=== PATIENT | male | born 1965 | race Caucasian/White ===

== ENCOUNTER 2018-11-17 15:27 | Inpatient (IN) | payer MEDICARE ==
[~2018-11-17 15:27] MED LIST: Iopamidol 370 76% 100 ML VIAL ONE
[2018-11-17] MEDS ORDERED: Acetaminophen 500 MG TAB ONE (16:02)
[2018-11-17] MEDS ORDERED: Ondansetron PF 4 MG/2 ML Vial ONE (16:02)
[2018-11-17] MEDS ORDERED: Ketorolac Tromethamine 30 MG/ML VIAL ONE (16:03)
--- NOTE | 2018-11-17 16:09 | RAD ---
Exam: Chest one view HISTORY:Short of breath Comparison: 12/14/2016 FINDINGS: Lungs: No masses or consolidation. Cardiac silhouette:Accentuated by portable technique Pulmonary vessels: Normal Pleural Spaces: Clear Pneumothorax: None Osseous abnormalities: None of acuity. IMPRESSION: Prominent cardiac silhouette, accentuated by portable technique. Consider follow-up with dedicated 2 view chest.
[2018-11-17] MEDS ORDERED: Furosemide 20 MG/2 ML VIAL ONE (16:30)
[2018-11-17 16:40] LABS: #Lymphocytes 0.9 thou/uL (1.20-3.40); #Monocytes 0.5 thou/uL (0.11-0.59); #Neutrophils 8.1 thou/uL (1.40-6.50); %Basophils 0.5 % (0.0-1.0); %Eosinophils 0.2 % (0.0-10.0); %Lymphocytes 9.4 % (21.0-51.0); %Monocytes 5.3 % (0.0-10.0); %Neutrophils 84.6 % (42.0-75.0); Hemoglobin 16.8 g/dL (14.0-18.0); Mean Corpuscular HGB CONC 30.5 g/dL (32.0-36.0); Mean Corpuscular Hemoglobin 28.6 pg (27.0-31.0); Mean Corpuscular Volume 93.7 fL (78.0-98.0); Mean Platelet Volume 8.3 fL (7.4-10.4); Platelet Count 133 thou/uL (130-400); RBC Distribution Width 15.7 % (11.5-14.5); Red Blood Cell (RBC) Count 5.87 mill/uL (4.70-6.10); White Blood Cell (WBC) Count 9.6 thou/uL (4.8-10.8)
[2018-11-17 16:54] LABS: AST (SGOT) 146 U/L (5-34); Albumin 4.2 g/dL (3.5-5.0); Alkaline Phosphatase 75 U/L (40-150); Anion Gap 25 mmol/L (10-20); BUN (Urea Nitrogen) 28 mg/dL (8.4-25.7); Bilirubin, Total 6.2 mg/dL (0.2-1.2); Calc. Creatinine Clearance 0 mL/min (70-130); Calcium 10.4 mg/dL (7.8-10.44); Carbon Dioxide 12 mmol/L (22-29); Chloride 106 mmol/L (98-107); Estimated GFR-MDRD 50; Potassium 4.4 mmol/L (3.5-5.1); Sodium 139 mmol/L (136-145)
[2018-11-17 17:30] LABS: ALT (SGPT) 75 U/L (8-55)
[2018-11-17] MEDS ORDERED: Nitroglycerin 2% Ointment 1 INCH/1 GM Packet ONE (17:32)
[2018-11-17] MEDS ORDERED: Nitroglycerin 0.4 MG TAB (25 Tab Bottle) ONE (17:32)
[2018-11-17 17:44] LABS: Globulin 3.4 g/dL (2.4-3.5); Glucose 53 mg/dL (70-105); Protein, Total 7.6 g/dL (6.0-8.3)
[2018-11-17] MEDS ORDERED: Ciprofloxacin Lactate/D5W 400 mg/200 ml Premix ONE (17:54)
[2018-11-17 18:16] LABS: CKMB 36.4 ng/mL (0-6.6)
--- NOTE | 2018-11-17 18:38 | CT ---
CT OF THE ABDOMEN AND PELVIS WITH IV CONTRAST 11/17/18 INDICATION: 53-year-old male with generalized weakness and bodyaches with vomiting. The patient is having nausea, lightheadedness, abdominal pain and constipation for the past two days. The patient reports shortnes s of breath. COMPARISON: Prior exam dated 05/04/11. FINDINGS: The lung bases are clear. The heart size is moderately prominent. There is layering material within the gallbladder suspicious for sludge. No focal hepatic lesion is evident. The pancreas and adrenal glands are within normal limits. The spleen is normal appearing. Th e kidneys are normal appearing. There are moderate calcifications involving the abdominal and pelvic vasculature. There is mild ascit es. There is moderate anasarca. The bladder, rectum, and perirectal soft tissues are unremarkable. There is scattered diverticula pre sent involving the colon without evidence of active diverticulitis. There is some suggested wall thi ckening involving portions of the ascending colon and cecum which are nonspecific. The appendix is n ot definitely seen; however, there is reports that the patient has undergone prior appendectomy. No acute osseous abnormality is evident. There is scattered degenerative and ossific change. IMPRESSION: 1. Interval development of mild ascites and diffuse anasarca. Findings may be related to CHF or volume overload. Findings also can be related to third spacing of unknown etiology. 2. Suggested wall thickening involving portions of the cecum and ascending colon. Some of this m ay be related to underdistention; however, a colitis of infectious or inflammatory etiology cannot be entirely excluded. 3. The extent of the haziness seen within the retroperitoneal and mesenteric soft tissues is fel t to likely be related to the anasarca; however, entity such as pancreatitis cannot be entirely exclu ded. 4. Moderate cardiomegaly. POS: BH
[2018-11-17] MEDS ORDERED: metroNIDAZOLE 500 MG/100 ML BAG ONE (18:56)
[2018-11-17 18:59] LABS: Bilirubin Negative (Negative); Blood, Urine Negative (Negative); Clarity Clear (Clear); Glucose, Urine (Dipstick) Negative (Negative); Leukocyte Negative (Negative); Nitrite Negative (Negative); Protein, Urine (Dipstick) Negative (Neg-Trace); Specific Gravity, Urine 1.015 (1.005-1.030)
[2018-11-17 19:56] LABS: Troponin I 0.033 ng/mL (< 0.028)
[2018-11-17] MEDS ORDERED: Acetaminophen 325 MG TAB PO PRN (22:20)
[2018-11-17] MEDS ORDERED: Ondansetron PF 4 MG/2 ML Vial IVP PRN (22:20)
[2018-11-17] MEDS ORDERED: Ondansetron ODT 4 MG TAB PO PRN (22:20)
[2018-11-17 22:50] LABS: Lactic Acid 5.5 mmol/L (0.5-2.2)
[2018-11-17 22:53] LABS: Troponin I 0.047 ng/mL (< 0.028)
[2018-11-17] MEDS ORDERED: Gabapentin 100 MG CAP PO SCH (23:30)
[2018-11-17] MEDS: HYDROcodone/Acetaminophen 5/325 mg Tablet PO PRN (23:39)
[2018-11-17 23:52] LABS: Magnesium 1.4 mg/dL (1.6-2.6); Potassium 4.2 mmol/L (3.5-5.1)
[2018-11-18 00:03] LABS: Lactic Acid 5.3 mmol/L (0.5-2.2)
[2018-11-18 05:37] LABS: #Basophils 0.1 thou/uL (0.0-0.2); #Eosinphils 0.1 thou/uL (0.0-0.7); #Lymphocytes 1.8 thou/uL (1.20-3.40); #Monocytes 1.1 thou/uL (0.11-0.59); #Neutrophils 7.2 thou/uL (1.40-6.50); %Basophils 0.9 % (0.0-1.0); %Eosinophils 0.7 % (0.0-10.0); %Lymphocytes 17.5 % (21.0-51.0); %Monocytes 10.6 % (0.0-10.0); %Neutrophils 70.3 % (42.0-75.0); Hemoglobin 16.2 g/dL (14.0-18.0); Mean Corpuscular HGB CONC 31.8 g/dL (32.0-36.0); Mean Corpuscular Hemoglobin 30.3 pg (27.0-31.0); Mean Corpuscular Volume 95.2 fL (78.0-98.0); Mean Platelet Volume 9.7 fL (7.4-10.4); Platelet Count 127 thou/uL (130-400); RBC Distribution Width 15.6 % (11.5-14.5); Red Blood Cell (RBC) Count 5.36 mill/uL (4.70-6.10); White Blood Cell (WBC) Count 10.3 thou/uL (4.8-10.8)
[2018-11-18 05:52] LABS: Anion Gap 17 mmol/L (10-20); BUN (Urea Nitrogen) 37 mg/dL (8.4-25.7); Calc. Creatinine Clearance 69 mL/min (70-130); Calcium 9.2 mg/dL (7.8-10.44); Carbon Dioxide 16 mmol/L (22-29); Chloride 106 mmol/L (98-107); Estimated GFR-MDRD 48; Glucose 160 mg/dL (70-105); Potassium 4.2 mmol/L (3.5-5.1); Sodium 135 mmol/L (136-145)
[2018-11-18] MEDS ORDERED: Magnesium Sulfate 2 GM in Sodium Chloride 0.9% 100 ML IVPB SCH (07:00)
[2018-11-18] MEDS ORDERED: Magnesium 2 GM/50 ML 2 GM in Premix Bag 1 BAG IVPB SCH ×2 (07:15→09:45)
--- NOTE | 2018-11-18 08:23 | HP ---
PRIMARY CARE DOCTOR: None reported. CODE STATUS: Full code. TIME OF EVALUATION: 10:00 p.m. CHIEF COMPLAINT: Generalized weakness. HISTORY OF PRESENT ILLNESS: A 53-year-old male patient with past medical history of hepatitis C, kidney failure, GERD, diverticulosis, and congestive heart failure, came to the hospital after having severe and gradually worsening generalized weakness with no clear triggers. No alleviating factors. The symptoms started since yesterday. The patient also has associated nausea and vomiting, for the past 2 days, feeling lightheaded with abdominal discomfort. As noted, the patient has bilateral lower extremity polyneuropathy, and also with chronic trophic changes and healing ulcer in the left leg that has been followed by Wound Care for the past few months. REVIEW OF SYSTEMS: CONSTITUTIONAL: No fever or chills. The patient reported generalized weakness. RESPIRATORY: No cough or sputum production. He reported no shortness of breath. CARDIOVASCULAR: No chest pain or palpitations. GASTROINTESTINAL: The patient had nausea and vomiting. Question of abdominal pain and diarrhea. 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 The patient was feeling lightheaded. GENITOURINARY: No burning on urination. EXTREMITIES: No leg swelling. All other systems were reviewed and negative except for the findings mentioned above. PAST MEDICAL HISTORY: As mentioned in the HPI. PAST SURGICAL HISTORY: Orthopedic surgery, right foot surgery, tonsillectomy, appendectomy, cardiac cath in 2013. FAMILY HISTORY:Reviewed and non contributory to current presentation. PSYCHIATRIC HISTORY: The patient has history of anxiety, depression, suicidal attempt, and overdose with antifreeze. SOCIAL HISTORY: The patient uses marijuana, methamphetamines, alcohol, former use of benzodiazepine, and cocaine. KNOWN ALLERGIES: No known drug allergies. REPORTED MEDICATIONS: 1. Lasix. 2. Lisinopril. 3. Gabapentin. PHYSICAL EXAMINATION: VITAL SIGNS: On presentation, blood pressure 148/101 with heart rate 110, respiratory rate was 20, temperature 97.6, pain was 10/10, and oxygen saturation is 97% on room air. GENERAL APPEARANCE: The patient is alert, oriented, not in acute distress. HEENT: Eyes, normal conjunctivae. Moist oral mucosa. Anicteric. NECK: No JVD. RESPIRATORY: Bilateral air entry. No rales. No wheezing. Symmetric expansion. CARDIOVASCULAR: Normal rate. Regular rhythm. No murmurs. No rub. The patient has bilateral leg edema. ABDOMEN: Soft. Normal bowel sounds. MUSCULOSKELETAL: Baseline range of motion. No sternal tenderness. SKIN: Warm, intact. No pallor. No rash. No redness except for bilateral lower extremities, that are red with significant trophic changes. There is a healing ulcer on the left leg of about 1 x 1 inches, very poor hygiene. Peripheral pulses are present. Capillary refill seems to be intact. NEURO: No evidence of any new focal weakness. Baseline speech. Cranial nerves seem to be intact. PSYCH: The patient is in good mood. No anxiety. Optimal judgment. LABORATORY DATA: EKG was reviewed. The patient has sinus tachycardia at the rate of 109, QT corrected 511. No other significant abnormalities. CT abdomen and pelvis ; the patient has mild ascites with anasarca with thickening of the cecum and ascending colon suspicious for colitis. Labs are reviewed. The patient has white count of 9.6, hemoglobin 16.8, MCV 93.7 ASSESSMENT AND PLAN: 1. He has possible colitis as seen on the CT. The patient has been started on antibiotics. We will continue for now, follow stool cultures and adjust treatment accordingly. 2. He has underlying congestive heart failure, continue diuresis, reconcile home medications. 3. Chronic nonhealing wound on the left neck, continue wound care as inpatient. 4. The patient has uncontrolled hypertension with systolic blood pressure 146. We will not treat aggressively as the patient presented with some diarrhea and colitis, we will monitor. We will adjust treatment as needed. 5. Lactic acidosis on presentation, trending down from 7.0 to 5.3 likely secondary to the congestive heart failure or acute colitis, treatment as above. 6. Mildly elevated troponin likely secondary to underlying congestive heart failure, initial troponin 0.033. Seconds one 0.047, we will trend and monitor, Cardiology has been consulted. We will follow recommendations. 7. Acute kidney injury. The patient has an increase in creatinine from 1.0-1.4, unclear etiology, could be cardiorenal. The patient has elevated BNP. Nephrology has been consulted. We will follow recommendations. Job ID: [id number] [facility]
[2018-11-18] MEDS ORDERED: Lisinopril 20 MG TAB PO SCH (09:00)
[2018-11-18] MEDS ORDERED: Enoxaparin Sodium 40 MG/0.4 ML SYRINGE SC SCH (09:00)
[2018-11-18] MEDS ORDERED: Furosemide 40 MG/4 ML VIAL SLOW IVP SCH (09:00)
[2018-11-18] MEDS ORDERED: Furosemide 40 MG TAB PO SCH (09:00)
[2018-11-18] MEDS ORDERED: Sodium Bicarbonate Tab 325 MG TAB PO SCH (09:04)
[2018-11-18] MEDS ORDERED: Metolazone 2.5 MG TAB PO SCH (09:30)
[2018-11-18] MEDS: Aspirin Chewable 81 MG TAB PO SCH (09:47)
[2018-11-18] MEDS: Furosemide 40 MG/4 ML VIAL SLOW IVP SCH (09:47)
[2018-11-18] MEDS: Sodium Bicarbonate Tab 325 MG TAB PO SCH ×3 (09:50→20:02)
[2018-11-18] MEDS ORDERED: Enoxaparin Sodium 30 MG/0.3 ML SYRINGE SC SCH (11:15)
[2018-11-18 12:04] VITALS: BMI 23.8
--- NOTE | 2018-11-18 12:28 | ULT ---
Sonogram right upper quadrant HISTORY: Right quadrant pain. COMPARISON: CT abdomen from 11/17/2018. FINDINGS: Echogenic sludge and small stones are present within the dependent portion of the gallbladd er lumen. Patient was reportedly not tender over the gallbladder fossa at the time of the exam. Common duct is 0.5 cm. There is unremarkable without focal mass or intrahepatic biliary dilatation. S mall amount of free fluid within the right upper quadrant. IMPRESSION: Biliary sludge and gallstones. No evidence of acute biliary obstruction. Small amount of free fluid within the right upper quadrant.
[2018-11-18] MEDS: cefTRIAXone\\ROCEPHIN 1 GM in Sodium Chloride 0.9% 100 ML IVPB SCH (12:55)
[2018-11-18] MEDS ORDERED: hydrALAZINE 20 MG/ML VIAL SLOW IVP PRN (14:37)
[2018-11-18] MEDS ORDERED: cloNIDine 0.1 MG TAB PO PRN (14:37)
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
--- NOTE | 2018-11-18 14:43 | CON ---
DATE OF CONSULTATION: REASON FOR CONSULTATION: Elevated creatinine. HISTORY OF PRESENT ILLNESS: A very pleasant 53-year-old gentleman, presented to the hospital for generalized weakness. The patient had colitis. His baseline creatinine was 1, which increased to 1.5, so I was consulted. The patient has had no proteinuria. The patient denies no headache, numbness, tingling, or weakness. Denies any nausea, vomiting, or chest pain. PAST MEDICAL HISTORY: Significant for hepatitis C, kidney disease, diverticulitis, and congestive heart failure. PAST SURGICAL HISTORY: Significant for orthopedic surgery, right foot surgery, tonsillectomy, appendectomy, and cardiac cath in 2013. SOCIAL HISTORY: The patient he does use drugs formally. ALLERGIES: NO KNOWN DRUG ALLERGIES. MEDICATIONS: Home medications list reviewed. Hospital medications list reviewed. PHYSICAL EXAMINATION: CONSTITUTIONAL: The patient is awake and alert. VITAL SIGNS: Pulse 110, breathing 16, and blood pressure 148/60. GENERAL APPEARANCE AND MENTAL STATUS: Fair. HEAD/NECK: Normocephalic. Atraumatic. EYES: EOMI. No deformity. EARS: Clear. No ulcers. NOSE: Intact. No lesions. MOUTH: Clear. No discharge. THROAT: Clear. No exudate. LUNGS: Clear. No crackles. CARDIAC: S1, S2. No rub. ABDOMEN: Benign. Bowel sounds positive. GENITALIA/RECTUM: Henley absent. BACK/EXTREMITIES: Edema 0+. NEUROLOGICAL: Alert and motor intact. SKIN: LYMPHATICS: REVIEW OF SYSTEMS: A 15-point review of system was performed, negative except as noted above. GENERAL: HEAD: NECK: No swelling or lumps. NOSE: No epistaxis or discharge. EYES: No diplopia or pain. RESPIRATORY: CARDIOVASCULAR: GASTROINTESTINAL: /HUMAN INTELLIGENCE: MUSCULOSKELETAL: No joint pain. NEUROPSYCHIATIC SYSTEMS: No suicidal ideation. No ideation. SKIN: Denies any rash or ulcer. CONSTITUTIONAL: No fever or chills. LABORATORY DATA: Labs reviewed. ASSESSMENT AND PLAN: Acute kidney injury with chronic kidney disease most likely due to acute tubular necrosis due to decreased effective arterial blood volume. Continue hydration. Hypertension, stable. Anemia, stable. Medication based on GFR appropriate. No indication for dialysis. Job ID: [id number]
[2018-11-18] MEDS: metroNIDAZOLE 500 MG in Premix Bag 1 BAG IVPB SCH ×2 (14:48→20:42)
[2018-11-18 16:42] LABS: Hep C IgG Ab Reflex HepC Qnt (NonReactive); Hep C Index 13.25 S/CO (0-0.79)
--- NOTE | 2018-11-18 19:25 | CON ---
DATE OF CONSULTATION: 11/18/2018 REFERRING PHYSICIAN: Mili Levin MD SURGEON: Pola Lopez DO HISTORY OF PRESENT ILLNESS: The patient is a 53-year-old male, who presented to the emergency department yesterday complaining of weakness and nausea and vomiting for several days. He has a significant past medical history and reported he ran out of all of his medications and so he stopped using them. He has a history of hepatitis C, renal failure, GERD, diverticulosis, CHF, left lower extremity ulcer, polyneuropathy, history of suicidal ideations, suicide history, and depression. He does also report meth and marijuana use frequently. On his evaluation in the emergency department, he received a CT of the abdomen and pelvis, which demonstrated common bile duct size of 0.5 cm, right upper quadrant free fluid and biliary sludging gallstones with no obstruction. This prompted a surgical consultation by the patient's primary team. The patient reports to surgery that he has been having nausea and vomiting for the past two days. Emesis is clear. Last bowel movement was 2 days ago. He is still passing flatus. Minimal abdominal pain, which is not exacerbated by eating. He also has very mild right upper quadrant pain. LFTs are only slightly elevated. The patient reports that he generally does not feel well. REVIEW OF SYSTEMS: All additional review of systems negative except as indicated above. PAST MEDICAL HISTORY: Hepatitis C, renal failure, GERD, diverticulosis, CHF, left lower extremity ulcer, polyneuropathy, suicidal history, depression, polysubstance abuse, chronic traumatic wound to right lower extremity. PAST SURGICAL HISTORY: Appendectomy. SOCIAL HISTORY: The patient reports marijuana, meth, alcohol, benzo and cocaine abuse. MEDICATIONS: Lasix, lisinopril, and gabapentin. ALLERGIES: NO KNOWN DRUG ALLERGIES. PHYSICAL EXAMINATION: VITAL SIGNS: Temperature 97.4, pulse 98, respirations are 17, oxygen saturation 96% on 1 L nasal cannula, and blood pressure 138/89. GENERAL: Ill-appearing thin male, sitting up in bed with moderate distress. NEUROLOGIC: GCS is 15. Alert and oriented x3. Gross motor and sensation intact. HEENT: Pupils are equal, round, reactive to light. PULMONARY: No signs of acute respiratory distress. Equal chest rise and fall. Lung hanson clear bilaterally. HEART: Regular rate and rhythm. No murmurs, gallops, or rubs. GI: Abdomen is soft with minimal tenderness to the right upper quadrant, nondistended. EXTREMITIES: Gross motor and sensation intact. 2+ pulses in all extremities. Swelling to bilateral lower extremities, left greater than right. Chronic wound to left anterior tib-fib with dressing in place. No purulent discharge noted. LABORATORY FINDINGS: White count 10.3, hemoglobin 16.2, hematocrit 51.0, and platelets are 127. Sodium 135, potassium 4.2, chloride 106, carbon dioxide 16, BUN 37, creatinine 1.51, glucose 160, lactic acid 5.3. DIAGNOSTIC FINDINGS: CT scan of the abdomen and pelvis demonstrates a common bile duct measuring 0.5 cm. Right upper quadrant free fluid. Abdominal ultrasound demonstrates biliary sludge and gallstones. No evidence of acute biliary obstruction. Small amount of free fluid within the right upper quadrant. ASSESSMENT: Right upper quadrant abdominal pain, may be due to acute cholecystitis. PLAN: The patient will receive a HIDA scan tomorrow. We will make the patient n.p.o. for midnight and will reassess the indication for surgery after the HIDA scan is complete. No acute surgical intervention today. Pain management and other acute medical management by primary team. The patient was seen and examined by Dr. Lopez and myself this afternoon. Job ID: [id number]
--- NOTE | 2018-11-18 19:40 | CON ---
DATE OF CONSULTATION: 11/18/2018 REASON FOR CONSULTATION: Elevated troponin. HISTORY OF PRESENT ILLNESS: Mr. Carolina is an unfortunate 53-year-old gentleman with previous history of substance abuse, hepatitis C, who recently complained of generalized weakness. He was found to have elevated creatinine in addition to a nonhealing ulcer. His troponin was minimally elevated, therefore prompting consultation. No chest pain or pressure noted. During my visit, he could not be specific to his weakness and fatigue. He underwent coronary angiography by Dr. Shakeel Murrell in 2013 and had no significant coronary artery disease present. PAST MEDICAL HISTORY: As above. PAST SURGICAL HISTORY: Right foot surgery, orthopedic surgery, tonsillectomy, appendectomy. SOCIAL HISTORY: The patient previously used marijuana, methamphetamines, alcohol, and cocaine. ALLERGIES: NONE. REVIEW OF SYSTEMS: A 10-point review of systems is reviewed and as above, otherwise negative. PHYSICAL EXAMINATION: GENERAL: Patient is a pleasant male, who is in no acute distress. The patient does appear disheveled and older than stated age. VITAL SIGNS: Blood pressure 111/72, pulse 84, temperature 97.4. NEUROLOGIC: The patient is alert and oriented x3 with no focal neurologic deficits. HEENT: Sclerae without icterus. Mouth has moist mucous membranes with normal pallor. NECK: No JVD. Carotid upstroke brisk. No bruits bilaterally. LUNGS: Clear to auscultation with unlabored respirations. BACK: No scoliosis or kyphosis. CARDIAC: Regular rate and rhythm with normal S1 and S2. No S3 or S4 noted. No significant rubs, murmurs, thrills, or gallops noted throughout the precordium. PMI is not displaced. There is no parasternal heave. ABDOMEN: Soft, nontender, nondistended. No peritoneal signs present. No hepatosplenomegaly. No abnormal striae. EXTREMITIES: 2+ femoral and 2+ dorsalis pedis pulses. No cyanosis, clubbing, or edema. SKIN: No gross abnormalities. PERTINENT LABORATORY DATA: Hemoglobin 16.2, hematocrit 51. Creatinine 1.51 with a GFR 48. Lactic acid level 5.3. Magnesium level 1.4. Peak troponin 0.047. IMPRESSION: 1. Elevated troponin. 2. Weakness. 3. Chronic kidney disease. 4. Substance abuse. RECOMMENDATIONS: His most recent echo showed normal LVEF. He has a markedly elevated right ventricle in addition to severe tricuspid regurgitation. When compared to previous echo, this appeared unchanged. This was in 2017. His elevated troponin likely multifactorial and represents type 2 CA, not type 1. He did have lactic acid level, which is elevated in addition to elevated creatinine. His overall LVEF is normal. He has no current symptoms suggesting angina. I would recommend conservative therapy from CV standpoint. Otherwise, I have no further recommendations. Please re-consult if other changes occur. Job ID: [id number]
[2018-11-18] MEDS: Gabapentin 300 MG CAP PO SCH (20:02)
[2018-11-18] MEDS ORDERED: Gabapentin 100 MG CAP PO SCH (21:00)
[2018-11-19] MEDS: metroNIDAZOLE 500 MG in Premix Bag 1 BAG IVPB SCH ×3 (05:31→21:36)
[2018-11-19] MEDS: cefTRIAXone\\ROCEPHIN 1 GM in Sodium Chloride 0.9% 100 ML IVPB SCH (05:31)
[2018-11-19] MEDS: HYDROcodone/Acetaminophen 5/325 mg Tablet PO PRN ×2 (05:34→20:18)
[2018-11-19 06:37] LABS: #Basophils 0.1 thou/uL (0.0-0.2); #Eosinphils 0.2 thou/uL (0.0-0.7); #Lymphocytes 1.6 thou/uL (1.20-3.40); #Monocytes 0.7 thou/uL (0.11-0.59); #Neutrophils 5.2 thou/uL (1.40-6.50); %Basophils 1.1 % (0.0-1.0); %Eosinophils 2.3 % (0.0-10.0); %Lymphocytes 20.1 % (21.0-51.0); %Neutrophils 67.5 % (42.0-75.0); Hemoglobin 15.6 g/dL (14.0-18.0); Mean Corpuscular Hemoglobin 29.9 pg (27.0-31.0); Mean Corpuscular Volume 93.4 fL (78.0-98.0); Mean Platelet Volume 9.4 fL (7.4-10.4); Platelet Count 108 thou/uL (130-400); RBC Distribution Width 15.5 % (11.5-14.5); White Blood Cell (WBC) Count 7.7 thou/uL (4.8-10.8)
[2018-11-19 06:48] LABS: Lactic Acid 1.9 mmol/L (0.5-2.2)
[2018-11-19 06:56] LABS: ALT (SGPT) 138 U/L (8-55); AST (SGOT) 221 U/L (5-34); Albumin 3.3 g/dL (3.5-5.0); Alkaline Phosphatase 98 U/L (40-150); Anion Gap 14 mmol/L (10-20); BUN (Urea Nitrogen) 37 mg/dL (8.4-25.7); Bilirubin, Total 2.6 mg/dL (0.2-1.2); Calc. Creatinine Clearance 76 mL/min (70-130); Carbon Dioxide 25 mmol/L (22-29); Chloride 101 mmol/L (98-107); Estimated GFR-MDRD 57; Globulin 2.7 g/dL (2.4-3.5); Glucose 122 mg/dL (70-105); Sodium 137 mmol/L (136-145)
[2018-11-19 07:03] LABS: Potassium 2.8 mmol/L (3.5-5.1)
[2018-11-19] MEDS: Potassium Chloride 20 MEQ in Premix Bag 1 BAG IVPB SCH ×2 (08:33→13:34)
--- NOTE | 2018-11-19 12:02 | PRG ---
DATE OF SERVICE: 11/19/2018 SUBJECTIVE: A 53-year-old gentleman being seen for acute kidney injury. The patient denied nausea, vomiting, or chest pain. OBJECTIVE: CONSTITUTIONAL: The patient is awake and alert. VITAL SIGNS: Afebrile. Pulse 98, breathing 16, and blood pressure 129/78. GENERAL APPEARANCE AND MENTAL STATUS: Fair. HEAD/NECK: Normocephalic. Atraumatic. EYES: EOMI. No deformity. EARS: Clear. No ulcers. NOSE: Intact. No lesions. MOUTH: Clear. No discharge. THROAT: Clear. No exudate. LUNGS: Clear. No crackles. CARDIAC: S1, S2. No rub. ABDOMEN: Benign. Bowel sounds positive. GENITALIA/RECTUM: Henley absent. BACK/EXTREMITIES: Edema 0+. NEUROLOGICAL: Alert and motor intact. SKIN: LYMPHATICS: LABORATORY DATA: potassium 2.8 and creatinine 1.3. ASSESSMENT AND PLAN: chronic kidney disease stage 3 stable. Acute kidney injury was due to acute tubular necrosis. Hypokalemia, recommend 40 mEq of potassium. Recheck potassium and magnesium. Job ID: [id number]
[2018-11-19] MEDS ORDERED: Potassium Chloride 20 MEQ TAB PO SCH (13:00)
--- NOTE | 2018-11-19 13:01 | NM ---
HEPATOBILIARY SCAN: HISTORY:Right upper quadrant pain RADIOPHARMACEUTICAL: 5 mCi Technetium 99m Mebrofenin injected intravenously FINDINGS: There is normal tracer extraction by the liver with normal excretion into the biliary tracts and smal l bowel loops and normal filling of the gallbladder. The calculated gallbladder ejection fraction following an oral fatty meal measures 74%. IMPRESSION:Normal exam.
[2018-11-19] MEDS: Aspirin Chewable 81 MG TAB PO SCH (13:28)
[2018-11-19] MEDS: Enoxaparin Sodium 30 MG/0.3 ML SYRINGE SC SCH (13:28)
[2018-11-19] MEDS: Sodium Bicarbonate Tab 325 MG TAB PO SCH ×3 (13:29→20:18)
[2018-11-19] MEDS: Gabapentin 300 MG CAP PO SCH ×2 (13:29→20:18)
[2018-11-19] MEDS: Furosemide 40 MG/4 ML VIAL SLOW IVP SCH (13:35)
--- NOTE | 2018-11-19 14:35 | PDOC.PN ---
- Subjective Encounter Start Date: 11/19/18 Encounter Start Time: 14:33 Subjective: feels much better.still feels weak though. -: c/o pain in legs and leg wound weeping - Objective Resuscitation Status - Order Detail: 11/17/18 22:20 Resuscitation Status Routine Resuscitation Status: FULL: Full Resuscitation MAR Reviewed: Yes Vital Signs & Weight: Vital Signs (12 hours) Temp Pulse Resp BP BP Pulse Ox 11/19/18 12:54 96.1 F L 98 20 128/83 98 11/19/18 07:40 98.8 F 98 18 129/78 99 11/19/18 04:00 98.1 F 100 21 H 129/75 92 L Weight Admit Weight 193 lb 7 oz Weight 185 lb I&O: 11/18/18 11/19/18 11/20/18 06:59 06:59 06:59 Intake Total 500 1980 Output Total 600 3500 Balance -100 -1520 Result Diagrams: 11/19/18 06:05 11/19/18 06:05 Additional Labs: Accuchecks 11/19/18 11/18/18 11/18/18 05:29 19:55 17:44 POC Glucose 122 H 120 H 107 Microbiology 11/17/18 16:35 Nasal swab Influenza Types A,B Direct EIA - Final 11/18/18 15:32 Venous blood - Right Hand Blood Culture - Preliminary Specimen has been received and culture in progress. No Growth to date. 11/18/18 15:26 Venous blood - Left Hand Blood Culture - Preliminary Specimen has been received and culture in progress. No Growth to date. 11/17/18 18:40 Urine voided Urine Culture - Preliminary NO GROWTH AT 12 HOURS Laboratory Tests 12/14/16 11/17/18 11/17/18 16:15 16:30 16:35 Plt Count 133 Creatinine Lactic Acid 7.0 H* Magnesium ALT 66 H Total Bilirubin AST 101 H B-Natriuretic Peptide Hepatitis C Antibody 11/17/18 11/17/18 11/17/18 16:35 16:35 22:17 Plt Count Creatinine 1.47 H Lactic Acid 5.5 H* Magnesium ALT 75 H Total Bilirubin 6.2 H AST 146 H B-Natriuretic Peptide 1112.2 H Hepatitis C Antibody 11/17/18 11/18/18 11/18/18 23:30 05:16 05:16 Plt Count 127 L Creatinine 1.51 H Lactic Acid 5.3 H* Magnesium ALT Total Bilirubin AST B-Natriuretic Peptide Hepatitis C Antibody 11/18/18 11/19/18 11/19/18 15:32 06:05 06:05 Plt Count Creatinine 1.30 Lactic Acid Magnesium ALT 138 H Total Bilirubin 2.6 H AST 221 H B-Natriuretic Peptide 1227.4 H Hepatitis C Antibody Reflex HepC Qnt H 11/19/18 11/19/18 11/19/18 06:05 06:05 06:05 Plt Count 108 L Creatinine Lactic Acid 1.9 Magnesium 1.6 ALT Total Bilirubin AST B-Natriuretic Peptide Hepatitis C Antibody Phys Exam - Physical Examination Constitutional: NAD HEENT: PERRLA, moist MMs, sclera anicteric, oral pharynx no lesions Neck: no nodes, no JVD, supple, full ROM Respiratory: no wheezing, no rales, no rhonchi, clear to auscultation bilateral Cardiovascular: RRR, no significant murmur, no rub Gastrointestinal: soft, non-tender, no distention, positive bowel sounds Musculoskeletal: no edema, pulses present Neurological: non-focal, normal sensation, moves all 4 limbs Psychiatric: normal affect, A&O x 3 Skin: no rash Dx/Plan (1) Acute right-sided CHF (congestive heart failure) Code(s): I50.9 - HEART FAILURE, UNSPECIFIED Status: Acute Comment: H/O same .Pulmonary HTN per ECHO 2016.cont lasix.monitor I/Os. (2) LAURIE (acute kidney injury) Code(s): N17.9 - ACUTE KIDNEY FAILURE, UNSPECIFIED Status: Acute Comment: improving. (3) Hypokalemia Code(s): E87.6 - HYPOKALEMIA Status: Acute Comment: replace and recheck (4) Lactic acid acidosis Code(s): E87.2 - ACIDOSIS Status: Acute Comment: Multifactorial.Due to LAURIE, dehydration due to Poor PO intake.improving. monitor. empiric ABX. Follow Stool studies/Cx.Add CDiff testing improving.monitor (5) Metabolic acidosis Code(s): E87.2 - ACIDOSIS Status: Acute Comment: due to high lactic acid and LAURIE (6) Hyperbilirubinemia Code(s): E80.6 - OTHER DISORDERS OF BILIRUBIN METABOLISM Status: Acute Comment: no Obstruction or cholecystitis on RUQ -US.GS consulted. HIDA done . results pending.Empiric ABx (7) Gallstone Code(s): K80.20 - CALCULUS OF GALLBLADDER W/O CHOLECYSTITIS W/O OBSTRUCTION Status: Chronic Comment: HIDA pending (8) Pulmonary hypertension Code(s): I27.2 - OTHER SECONDARY PULMONARY HYPERTENSION * DO NOT USE * Status : Chronic Comment: Repeat ECHO this admission jordana eas before w severe TR and Pulm HTN (9) Cor pulmonale Code(s): I27.81 - COR PULMONALE (CHRONIC) Status: Chronic (10) Hypertension Code(s): I10 - ESSENTIAL (PRIMARY) HYPERTENSION Status: Chronic (11) Hep C w/o coma, chronic Code(s): B18.2 - CHRONIC VIRAL HEPATITIS C Status: Chronic Comment: no Rx so far. Unknown status. Will check Ab and PCR for Ag. [place] Chronic. (12) Peripheral neuropathy Code(s): G62.9 - POLYNEUROPATHY, UNSPECIFIED Status: Chronic Comment: start gabapentin. (13) Thrombocytopenia Code(s): D69.6 - THROMBOCYTOPENIA, UNSPECIFIED Status: Chronic Comment: likely due to Hep C. no overt or occult bleed. Monitor.Cont Lovenox at lower dose for DVT prophylaxis for now (14) Non compliance w medication regimen Code(s): Z91.14 - PATIENT'S OTHER NONCOMPLIANCE WITH MEDICATION REGIMEN Status : Chronic - Plan continue antibiotics, PT/OT, respiratory therapy, incentive spirometry, out of bed/ambulate, DVT proph w/SCDs add doxycycline for possible leg wound infection. may need arterial doppler -: cont wound care. -: Clinically better. -: cont Gabapentin -: add CCB for Pulm HTN if BP permits * . Review of Systems - Review of Systems Constitutional: weakness, malaise Respiratory: negative: Cough, Dry, Shortness of Breath, Hemoptysis, SOB with Excertion, Pleuritic Pain, Sputum, Wheezing Cardiovascular: negative: chest pain, palpitations, orthopnea, paroxysmal nocturnal dyspnea, edema, light headedness, other Gastrointestinal: negative: Nausea, Vomiting, Abdominal Pain, Diarrhea, Constipation, Melena, Hematochezia, Other Genitourinary: negative: Dysuria, Frequency, Incontinence, Hematuria, Retention , Other Musculoskeletal: negative: Neck Pain, Shoulder Pain, Arm Pain, Back Pain, Hand Pain, Leg Pain, Foot Pain, Other Neurological: negative: Weakness, Numbness, Incoordination, Change in Speech, Confusion, Seizures, Other - Medications/Allergies Allergies/Adverse Reactions: Allergies Allergy/AdvReac Type Severity Reaction Status Date / Time No Known Drug Allergies Allergy Verified 02/22/14 09:34 Medications: Current Medications Acetaminophen (Tylenol) 650 mg PO Q4H PRN PRN Reason: Headache/Fever/Mild Pain (1-3) Hydrocodone Bitart/Acetaminophen ([place] 5/325) 1 tab PO Q4H PRN PRN Reason: Moderate Pain (4-6) Last Admin: 11/19/18 05:34 Dose: 1 tab Albuterol/Ipratropium (Duoneb) 3 ml NEB Q6H PRN PRN Reason: SOB Aspirin (Aspirin Chewable) 81 mg PO QAM-[facility] Last Admin: 11/19/18 13:28 Dose: 81 mg Clonidine (Catapres) 0.1 mg PO Q4H PRN PRN Reason: SBP>160 Enoxaparin Sodium (Lovenox) 30 mg SC 0900 [facility] Last Admin: 11/19/18 13:28 Dose: 30 mg Furosemide (Lasix) 40 mg PO DAILY-AC [facility] Gabapentin (Neurontin) 300 mg PO BID [facility] Last Admin: 11/19/18 13:29 Dose: 300 mg Hydralazine HCl (Apresoline) 10 mg SLOW IVP Q4H PRN PRN Reason: SBP>170 Ceftriaxone Sodium 1 gm/ (Sodium Chloride) 100 mls @ 200 mls/hr IVPB Q24HR [facility] Last Admin: 11/19/18 05:31 Dose: 100 mls Metronidazole 500 mg/ Device 100 mls @ 100 mls/hr IVPB Q8HR [facility] Last Admin: 11/19/18 05:31 Dose: 100 mls Ondansetron HCl (Zofran Odt) 4 mg PO Q6H PRN PRN Reason: Nausea/Vomiting Ondansetron HCl (Zofran) 4 mg IVP Q6H PRN PRN Reason: Nausea/Vomiting Potassium Chloride (K-Dur) 40 meq PO QAM-[facility] Potassium Chloride (Klor-Con) 20 meq PO 1500 [facility] Stop: 11/19/18 16:00 Sodium Bicarbonate (Bicarbonate, Sodium) 650 mg PO TID [facility] Last Admin: 11/19/18 13:29 Dose: 650 mg Sodium Chloride (Flush - Normal Saline) 10 ml IVF Q12HR [facility] Last Admin: 11/19/18 08:40 Dose: 10 ml Sodium Chloride (Flush - Normal Saline) 10 ml IVF PRN PRN PRN Reason: Saline Flush Tramadol HCl (Ultram) 50 mg PO Q4H PRN PRN Reason: Moderate pain
[2018-11-19] MEDS ORDERED: NIFEdipine XL 30 MG TAB PO SCH (14:45)
[2018-11-19 15:09] LABS: Anion Gap 14 mmol/L (10-20); BUN (Urea Nitrogen) 33 mg/dL (8.4-25.7); Calc. Creatinine Clearance 75 mL/min (70-130); Calcium 9.1 mg/dL (7.8-10.44); Carbon Dioxide 28 mmol/L (22-29); Chloride 100 mmol/L (98-107); Estimated GFR-MDRD 56; Glucose 99 mg/dL (70-105); Potassium 3.1 mmol/L (3.5-5.1); Sodium 139 mmol/L (136-145)
[2018-11-19 15:23] LABS: Potassium 3.1 mmol/L (3.5-5.1)
--- NOTE | 2018-11-19 16:28 | PRG ---
DATE OF SERVICE: 11/19/2018 SUBJECTIVE: The patient was seen this morning, sitting up in bed. Appearing better than yesterday. Reported no nausea or vomiting overnight. Just stated that his IV potassium replacement was painful in his right upper extremity. Has still not had a bowel movement. Not passing flatus, however, has minimal GI complaints. OBJECTIVE: VITAL SIGNS: Temperature 98.1, pulse 100, respirations 21, oxygen saturation 92% on room air, and blood pressure 129/76. GENERAL: A well-appearing thin male, sitting up in bed with no signs of acute distress. NEUROLOGIC: GCS is 15. Alert and oriented x3. Gross motor and sensation are intact. PULMONARY: No signs of acute respiratory distress. Equal chest rise and fall. Clear breath sounds bilaterally. HEART: Regular rate and rhythm. No murmurs, gallops, or rubs. GI: Abdomen is soft. Minimal tenderness to the right upper quadrant, but nondistended. EXTREMITIES: Gross motor and sensation intact in all extremities. 2+ pulses in all extremities. Swelling in his bilateral lower extremities, left greater than right. Chronic wound to left anterior tib-fib in place. LABORATORY FINDINGS: White count 7.7, hemoglobin 15.6, hematocrit 48.6, platelets 108. Sodium 139, potassium 3.1, chloride 101, carbon dioxide 28, BUN 33, creatinine 1.32, and glucose 99. DIAGNOSTIC FINDINGS: HIDA scan completed today, demonstrates there is normal tracer extraction by the liver with normal extraction into the biliary tract and small bowel loops and normal filling of the gallbladder. Ejection fraction following in the oral fatty meal measures 78%. Impression, reports normal exam. ASSESSMENT: Mild abdominal symptoms, rule out acute cholecystitis and cholelithiasis. PLAN: The patient received this HIDA scan today, which demonstrated the patient does not have acute cholecystitis. There is no surgical indication at this time. No additional workup indicated per surgery. Pain management and additional acute medical management by primary team. Surgery will sign off at this time. Please call with any concerns. The patient was discussed with Dr. Lopez before this dictation. Job ID: [id number] MTDD
[2018-11-20] MEDS: metroNIDAZOLE 500 MG in Premix Bag 1 BAG IVPB SCH (05:36)
[2018-11-20] MEDS: HYDROcodone/Acetaminophen 5/325 mg Tablet PO PRN (06:21)
[2018-11-20] MEDS: cefTRIAXone\\ROCEPHIN 1 GM in Sodium Chloride 0.9% 100 ML IVPB SCH (06:22)
[2018-11-20] MEDS ORDERED: Furosemide 40 MG TAB PO SCH (07:30)
[2018-11-20] MEDS ORDERED: NIFEdipine XL 30 MG TAB PO SCH (09:00)
[2018-11-20] MEDS: Aspirin Chewable 81 MG TAB PO SCH (09:01)
[2018-11-20] MEDS: Gabapentin 300 MG CAP PO SCH ×2 (09:01→21:20)
[2018-11-20] MEDS: Potassium Chloride 20 MEQ TAB PO SCH (09:01)
[2018-11-20] MEDS: Sodium Bicarbonate Tab 325 MG TAB PO SCH (09:01)
[2018-11-20] MEDS: Enoxaparin Sodium 30 MG/0.3 ML SYRINGE SC SCH (09:02)
[2018-11-20] MEDS ORDERED: traMADol HCl 50 MG TAB PO PRN (12:17)
[2018-11-20] MEDS ORDERED: Polyethylene Glycol 3350 17 GM Packet PO SCH (12:30)
[2018-11-20] MEDS ORDERED: Bisacodyl 10 MG SUPP PR SCH (12:30)
[2018-11-20] MEDS ORDERED: Senokot S 8.6-50 MG TAB PO SCH (12:30)
[2018-11-20] MEDS: Furosemide 40 MG TAB PO SCH (14:34)
--- NOTE | 2018-11-20 17:00 | PDOC.PN ---
- Subjective Encounter Start Date: 11/20/18 Encounter Start Time: 10:30 Patient seen and examined for CHF/LAURIE/Cellulitis. Feeling better. No new complaints. No overnight events - Objective Resuscitation Status - Order Detail: 11/17/18 22:20 Resuscitation Status Routine Resuscitation Status: FULL: Full Resuscitation MAR Reviewed: Yes Vital Signs & Weight: Vital Signs (12 hours) Pulse 11/20/18 09:57 100 Weight Admit Weight 193 lb 7 oz Weight 185 lb 9.6 oz I&O: 11/19/18 11/20/18 11/21/18 06:59 06:59 06:59 Intake Total 1979 1700 Output Total 3500 1900 Balance -1520 -200 Result Diagrams: 11/19/18 06:05 11/19/18 14:41 Additional Labs: Accuchecks 11/20/18 11/20/18 11/19/18 11:09 06:08 20:21 POC Glucose 119 H 94 131 H 11/19/18 17:01 POC Glucose 103 Radiology Reviewed by me: No (HIDA - negative) EKG Reviewed by me: Yes (Tele SR) Phys Exam - Physical Examination Constitutional: NAD Respiratory: no wheezing, no rhonchi Cardiovascular: RRR, no rub Gastrointestinal: soft, non-tender, positive bowel sounds Musculoskeletal: edema present LLE erythema improving Neurological: non-focal Dx/Plan - Plan plan discussed w/ family, DVT proph w/SCDs IMPRESSION: Gen weakness Acute on chronic Right heart failure / Pulmonary HTN LAURIE on CKD 2 due to Cardiorenal syndrome LLE Cellulitis N/V/Abd pain - improving HTN Chronic Hepatitis C Abn LFTs - due to passive hepatic congestion Type 2 IN Metabolic acidosis/Lactic acidosis due to LAURIE Hypokalemia Dental caries h/o Polysubstance abuse Thrombocytopenia Constipation Peripheral neuropathy PLAN: Change Lasix to PO Change Atbx to PO Augmentin Cont Fluid restriction CHF Education AM labs Replace Potassium Treat constipation Review of Systems - Review of Systems Respiratory: negative: Cough, Dry, Shortness of Breath, Hemoptysis, SOB with Excertion, Pleuritic Pain, Sputum, Wheezing Cardiovascular: negative: chest pain, palpitations, orthopnea, paroxysmal nocturnal dyspnea, edema, light headedness, other - Medications/Allergies Allergies/Adverse Reactions: Allergies Allergy/AdvReac Type Severity Reaction Status Date / Time No Known Drug Allergies Allergy Verified 02/22/14 09:34 Medications: Current Medications Acetaminophen (Tylenol) 650 mg PO Q4H PRN PRN Reason: Headache/Fever/Mild Pain (1-3) Albuterol/Ipratropium (Duoneb) 3 ml NEB Q6H PRN PRN Reason: SOB Amoxicillin/Clavulanate Potassium (Augmentin) 875 mg PO Q12HR [facility] Aspirin (Aspirin Chewable) 81 mg PO QAM-[facility] Last Admin: 11/20/18 09:01 Dose: 81 mg Clonidine (Catapres) 0.1 mg PO Q4H PRN PRN Reason: SBP>160 Furosemide (Lasix) 40 mg PO 0900,1400 [facility] Last Admin: 11/20/18 14:34 Dose: 40 mg Gabapentin (Neurontin) 300 mg PO BID [facility] Last Admin: 11/20/18 09:01 Dose: 300 mg Hydralazine HCl (Apresoline) 10 mg SLOW IVP Q4H PRN PRN Reason: SBP>170 Lisinopril (Zestril) 2.5 mg PO DAILY [facility] Ondansetron HCl (Zofran Odt) 4 mg PO Q6H PRN PRN Reason: Nausea/Vomiting Ondansetron HCl (Zofran) 4 mg IVP Q6H PRN PRN Reason: Nausea/Vomiting Polyethylene Glycol (Miralax) 17 gm PO DAILY [facility] Potassium Chloride (K-Dur) 40 meq PO QA-[facility] Last Admin: 11/20/18 09:01 Dose: 40 meq Senna/Docusate Sodium (Senokot S) 2 tab PO BID [facility] Sodium Chloride (Flush - Normal Saline) 10 ml IVF Q12HR [facility] Last Admin: 11/20/18 09:58 Dose: 10 ml Sodium Chloride (Flush - Normal Saline) 10 ml IVF PRN PRN PRN Reason: Saline Flush Tramadol HCl (Ultram) 50 mg PO Q4H PRN PRN Reason: Moderate pain Tramadol HCl (Ultram) 50 mg PO Q4H PRN PRN Reason: Moderate Pain (4-6)
[2018-11-20 20:07] LABS: HCV log10 5.918 (.); Hep C PCR-Quant 827000 IU/mL (.)
[2018-11-20] MEDS: Senokot S 8.6-50 MG TAB PO SCH (21:20)
[2018-11-20] MEDS: Amoxicillin/Potassium Clav 875 MG TAB PO SCH (21:20)
[2018-11-20] MEDS: traMADol HCl 50 MG TAB PO PRN (21:35)
[2018-11-21] MEDS: traMADol HCl 50 MG TAB PO PRN (02:53)
[2018-11-21 04:57] LABS: #Basophils 0.1 thou/uL (0.0-0.2); #Eosinphils 0.2 thou/uL (0.0-0.7); #Lymphocytes 1.4 thou/uL (1.20-3.40); #Monocytes 0.7 thou/uL (0.11-0.59); #Neutrophils 3.9 thou/uL (1.40-6.50); %Basophils 1.6 % (0.0-1.0); %Eosinophils 3.8 % (0.0-10.0); %Monocytes 10.7 % (0.0-10.0); %Neutrophils 61.9 % (42.0-75.0); Hemoglobin 15.8 g/dL (14.0-18.0); Mean Corpuscular HGB CONC 31.9 g/dL (32.0-36.0); Mean Corpuscular Hemoglobin 29.5 pg (27.0-31.0); Mean Corpuscular Volume 92.7 fL (78.0-98.0); Mean Platelet Volume 9.6 fL (7.4-10.4); Platelet Count 104 thou/uL (130-400); RBC Distribution Width 15.5 % (11.5-14.5); Red Blood Cell (RBC) Count 5.36 mill/uL (4.70-6.10); White Blood Cell (WBC) Count 6.3 thou/uL (4.8-10.8)
[2018-11-21 05:12] LABS: ALT (SGPT) 77 U/L (8-55); AST (SGOT) 101 U/L (5-34); Albumin 3.3 g/dL (3.5-5.0); Alkaline Phosphatase 93 U/L (40-150); Anion Gap 13 mmol/L (10-20); BUN (Urea Nitrogen) 22 mg/dL (8.4-25.7); Bilirubin, Total 2.2 mg/dL (0.2-1.2); Calc. Creatinine Clearance 94 mL/min (70-130); Calcium 9.1 mg/dL (7.8-10.44); Carbon Dioxide 30 mmol/L (22-29); Chloride 98 mmol/L (98-107); Estimated GFR-MDRD 73; Globulin 2.9 g/dL (2.4-3.5); Glucose 91 mg/dL (70-105); Magnesium 1.6 mg/dL (1.6-2.6); Potassium 3.5 mmol/L (3.5-5.1); Protein, Total 6.2 g/dL (6.0-8.3); Sodium 137 mmol/L (136-145)
[2018-11-21] MEDS ORDERED: Lisinopril 2.5 MG TAB PO SCH ×2 (09:00→21:00)
[2018-11-21] MEDS ORDERED: Polyethylene Glycol 3350 17 GM Packet PO SCH (09:00)
[2018-11-21] MEDS: Aspirin Chewable 81 MG TAB PO SCH (09:45)
[2018-11-21] MEDS: Amoxicillin/Potassium Clav 875 MG TAB PO SCH ×2 (09:46→20:28)
[2018-11-21] MEDS: Gabapentin 300 MG CAP PO SCH ×2 (09:46→20:28)
[2018-11-21] MEDS: Potassium Chloride 20 MEQ TAB PO SCH (09:46)
[2018-11-21] MEDS: Furosemide 40 MG TAB PO SCH (09:46)
[2018-11-21] MEDS: Senokot S 8.6-50 MG TAB PO SCH ×2 (09:47→20:28)
[2018-11-21] MEDS ORDERED: Furosemide 20 MG TAB PO SCH (14:00)
[2018-11-21] MEDS ORDERED: Furosemide 40 MG/4 ML VIAL SLOW IVP SCH (14:00)
[2018-11-21] MEDS: Sodium Chloride 0.65% Nasal 44 ML BOT EA NARE SCH ×2 (15:01→20:27)
[2018-11-21] MEDS: Chlorhexidine Gluconate 15 ML UDCUP SSP SCH ×2 (15:02→20:27)
--- NOTE | 2018-11-21 16:16 | DIS ---
DATE OF ADMISSION: 11/17/2018 DATE OF DISCHARGE: 11/21/2018 DISCHARGE DISPOSITION: Home. FOLLOWUP: 1. Follow up with primary care physician at [facility] in 1 week. 2. Follow up with Gastroenterology as outpatient for hepatitis C. 3. Follow up with Pulmonary as outpatient for pulmonary hypertension. ALLERGIES: NO KNOWN DRUG ALLERGIES. DISCHARGE MEDICATIONS: 1. Aspirin 81 mg daily. 2. Augmentin 875 mg b.i.d. for 1 week. 3. Doxycycline 100 mg b.i.d. for 1 week. 4. Albuterol inhaler as needed. 5. Lasix 20 mg b.i.d. 6. Neurontin 100 mg daily. 7. Lisinopril 2.5 mg b.i.d. 8. MiraLAX daily. 9. Senokot-S two tablets b.i.d. until constipation resolves. 10. Potassium chloride 10 mEq b.i.d. for next 14 days. The patient was seen and examined on the day of discharge. Denies any new complaints. No chest pain, shortness of breath, or palpitations reported. The patient was advised to follow up on the hepatitis C RNA results. Basic metabolic profile after 1 week is recommended. Primary care physician advised to follow. BRIEF HOSPITAL COURSE: The patient is a 53-year-old male with chronic hepatitis C, GERD, and congestive heart failure, presented to the hospital with generalized weakness. He has gained approximately 20 to 25 pounds recently. Please note that he was out of all of his medications. Please refer to the history and physical for further details. The patient was admitted to the hospital with a diagnosis of generalized weakness along with congestive heart failure exacerbation. He was started on Lasix with good improvement in his symptoms. His weight on the day of discharge is 176 pounds from 195 pounds on admission. He was extensively counseled on congestive heart failure. His echocardiogram showed severely enlarged right ventricle cavity with markedly enlarged right atrium size with severe tricuspid regurgitation, severely elevated pulmonary artery pressure. Ejection fraction was 55% to 60%. Please note that the patient has a history of pulmonary hypertension and is out of all of his medications including Lasix. The patient was extensively counseled to be compliant with fluid restriction. Repeat CMP after 1 week is recommended. Primary care physician advised to follow. The patient was also found to have elevated LFTs with total bilirubin of 6.[address] scan of the abdomen and pelvis showed diffuse anasarca with ascites and bowel wall thickening. He was evaluated by General Surgery for abnormal LFTs due to concern of possible acute cholecystitis. HIDA scan, however, came back negative. His LFTs improved with diuresis. His bilirubin on the day of discharge is 2.2 from 6.2 on admission. The patient has significant lactic acidosis of 7.0 on admission that improved to 1.9 with diuresis. The lactic acidosis was probably secondary to third spacing. His bicarbonate on admission was 12. The patient qualified for home oxygen, which will be arranged on the day of discharge. He has a long history of pulmonary hypertension without any followup. He was advised to follow up with web development instructor as outpatient. FINAL DIAGNOSES: 1. Generalized weakness multifactorial. 2. Afnhc-we-qldsdvw right-sided heart failure, improved. The patient lost 20 pounds weight during this admission. 3. History of pulmonary hypertension and outpatient pulmonology followup is recommended. 4. Acute kidney injury on chronic kidney disease stage 2 secondary to cardiorenal syndrome. 5. Left lower extremity cellulitis with ulceration. He will continue wound care along with antibiotics. 6. Nausea, vomiting, abdominal pain, improved. 7. Hypertension. 8. Chronic hepatitis C. Hepatitis C RNA is pending at this time. An outpatient GI followup is recommended. 9. Abnormal LFTs secondary to passive hepatic congestion, improving. 10. Follow up labs as outpatient is recommended. 11. Type 2 myocardial infarction. 12. Metabolic acidosis/lactic acidosis due to acute kidney injury and third spacing. 13. Acute kidney injury, improved. 14. Hypokalemia. 15. Poor dental hygiene/dental caries and outpatient dental followup is recommended. 16. History of polysubstance abuse. 17. Thrombocytopenia. 18. Constipation. 19. Peripheral neuropathy. 20. Hypoglycemia on admission. 21. Chronic kidney disease stage 2. PLAN: Plan of care was discussed with the patient in detail. He stated understanding. Total time coordinating the discharge of this patient was 39 minutes. Job ID: [id number]
[2018-11-21 20:30] VITALS: BP 124/81
[2018-11-21 20:36] VITALS: TEMP 98.1
[2018-11-21] MEDS ORDERED: Enoxaparin Sodium 30 MG/0.3 ML SYRINGE SC SCH (21:00)
[2018-11-21] MEDS ORDERED: Doxycycline 100 MG CAP PO SCH (21:00)
== END 2018-11-21 21:05 | disposition home or self-care (01) | DRG 280 ==
LOC: SCSER 15:27 → 2NO 20:14
PROVIDERS: ADMIT Internal Medicine; ATTEND Internal Medicine
DX: I13.0 Hypertensive heart and chronic kidney disease with heart failure and stage 1 through stage 4 chronic kidney disease, or unspecified chronic kidney disease (principal); N17.0 Acute kidney failure with tubular necrosis; I21.A1 Myocardial infarction type 2; E87.2 Acidosis; E80.6 Other disorders of bilirubin metabolism; K80.20 Calculus of gallbladder without cholecystitis without obstruction; I27.20 Pulmonary hypertension, unspecified; I27.81 Cor pulmonale (chronic); N18.2 Chronic kidney disease, stage 2 (mild); B18.2 Chronic viral hepatitis C; G62.9 Polyneuropathy, unspecified; D69.6 Thrombocytopenia, unspecified; Z91.14 Patient's other noncompliance with medication regimen; E87.6 Hypokalemia; I50.9 Heart failure, unspecified
CPT/HCPCS: 36415; 36416; 71045; 74177; 76705; 78227; 80048; 80053; 81003; 82010; 82553; 83605; 83690; 83735; 83880; 84145; 84484; 85025; 86803; 87040; 87086; 87522; 87804; 93005; 93306; 93798; 96365; 96367; 96375; A9537; J0696; J0744; J1650; J1885; J1940; J2405; J3475; J3480; J3490; Q9967

== ENCOUNTER 2019-09-10 10:45 | Observation (INO) | payer MEDICARE ==
[2019-09-10 11:36] LABS: #Basophils 0.1 thou/uL (0.0-0.2); #Eosinphils 0.3 thou/uL (0.0-0.7); #Lymphocytes 1.4 thou/uL (1.20-3.40); #Monocytes 0.5 thou/uL (0.11-0.59); %Basophils 1.1 % (0.0-1.0); %Eosinophils 4.9 % (0.0-10.0); %Lymphocytes 22.3 % (21.0-51.0); %Monocytes 8.5 % (0.0-10.0); %Neutrophils 63.2 % (42.0-75.0); Hemoglobin 15.7 g/dL (14.0-18.0); Mean Corpuscular HGB CONC 32.9 g/dL (32.0-36.0); Mean Corpuscular Hemoglobin 30.3 pg (27.0-31.0); Mean Platelet Volume 10.1 fL (7.4-10.4); Platelet Count 94 thou/uL (130-400); RBC Distribution Width 15.6 % (11.5-14.5); Red Blood Cell (RBC) Count 5.18 mill/uL (4.70-6.10); White Blood Cell (WBC) Count 6.3 thou/uL (4.8-10.8)
[2019-09-10 11:41] LABS: INR-International Normal Ratio 1.1; PTT 33.7 SEC (22.9-36.1); Prothrombin Time 13.8 SEC (12.0-14.7)
--- NOTE | 2019-09-10 11:46 | ULT ---
RIGHT UPPER QUADRANT ULTRASOUND CLINICAL HISTORY: Right upper quadrant pain. COMPARISON: November 18, 2018 FINDINGS: Liver:Normal echotexture without focal mass. Intrahepatic bile ducts: No intrahepatic or extrahepatic biliary dilation.; Common bile duct: 5 mm. Gallbladder: There is persistent gallbladder sludge and gallstones within the lumen of the gallbladde r. There is mild gallbladder wall thickening measuring 3.7 mm. No pericholecystic fluid is demonstrated. Paredes's sign:None Main portal vein:Patent with hepatopedal flow. Pancreas:Visualized pancreas appears normal. Right kidney: Right kidney measures 9.8 x 4.2 x 4.9 cm. No focal renal lesion or hydronephrosis. Additional findings: None. IMPRESSION: Stable cholelithiasis with gallbladder sludge and mild collateral wall thickening. There is no sonogr aphic evidence to suggest acute calculus cholecystitis.
[2019-09-10 12:01] LABS: ALT (SGPT) 37 U/L (8-55); AST (SGOT) 74 U/L (5-34); Albumin 3.4 g/dL (3.5-5.0); Alkaline Phosphatase 86 U/L (40-110); Anion Gap 14 mmol/L (10-20); BUN (Urea Nitrogen) 20 mg/dL (8.4-25.7); Bilirubin, Total 2.6 mg/dL (0.2-1.2); Calc. Creatinine Clearance 0 mL/min (70-130); Carbon Dioxide 23 mmol/L (22-29); Chloride 103 mmol/L (98-107); Estimated GFR-MDRD 74; Globulin 3.2 g/dL (2.4-3.5); Glucose 108 mg/dL (70-105); Lipase 25 U/L (8-78); Potassium 4.1 mmol/L (3.5-5.1); Protein, Total 6.6 g/dL (6.0-8.3); Sodium 136 mmol/L (136-145)
--- NOTE | 2019-09-10 12:07 | RAD ---
RADIOGRAPH CHEST 1 VIEW: DATE: 09-10-2019 HISTORY: 53-year-old male with chest pain. FINDINGS: There is cardiomegaly. There is no evidence of air space density, pulmonary edema, or pneumothorax. T he lateral costophrenic angles are sharp. IMPRESSION: 1) No acute pulmonary findings. 2) Mild cardiomegaly without congestive heart failure. jn POS: [facility]PC
[2019-09-10] MEDS ORDERED: Nitroglycerin 2% Ointment 1 INCH/1 GM Packet ONE (12:12)
[2019-09-10 13:12] LABS: CKMB 9.2 ng/mL (0-6.6)
--- NOTE | 2019-09-10 14:04 | PDOC.HHP ---
Hospitalist HPI - History of Present Illness Chest pain History of Present Illness: This is a 53-year-old male with history of hypertension, CHF and peripheral neuropathy who presented to the hospital with complaints of central chest tightness that started earlier today after waking up from sleep. The patient's pain did not radiate and was associated with palpitations and shortness of breath. It persisted until receiving nitroglycerin in the emergency department. The patient denies any current pain. He was recently discharged from another hospital after being treated for C. difficile colitis. The patient stated that he has at least 7 days to go on his oral vancomycin. Hospitalist ROS - Review of Systems All other systems reviewed; all pertinent +/- noted in HPI/Subj Hospitalist History - Past Medical History Cardiac: reports: CHF, HTN - Past Surgical History Past Surgical History: reports: Appendectomy, Tonsillectomy - Family History Family History: reports: no pertinent history - Social History Smoking Status: Never smoker Alcohol: reports: None Drugs: reports: none - Exam General Appearance: NAD, awake alert Eye: PERRL, anicteric sclera ENT: normocephalic atraumatic Neck: supple Heart: RRR, no murmur, no gallops, no rubs Respiratory: CTAB, no wheezes, no rales Gastrointestinal: soft, non-tender, non-distended, normal bowel sounds Neurological: cranial nerve grossly intact, no focal deficits Hospitalist Results - Labs Result Diagrams: 09/10/19 11:09 09/10/19 11:09 Lab results: WBC 6.3 thou/uL (4.8-10.8) 09/10/19 11:09 Hgb 15.7 g/dL (14.0-18.0) 09/10/19 11:09 Hct 47.7 % (42.0-52.0) 09/10/19 11:09 MCV 92.0 fL (78.0-98.0) 09/10/19 11:09 Plt Count 94 thou/uL (130-400) L 09/10/19 11:09 Neutrophils % 63.2 % (42.0-75.0) 09/10/19 11:09 Sodium 136 mmol/L (136-145) 09/10/19 11:09 Potassium 4.1 mmol/L (3.5-5.1) 09/10/19 11:09 Chloride 103 mmol/L (98-107) 09/10/19 11:09 Carbon Dioxide 23 mmol/L (22-29) 09/10/19 11:09 BUN 20 mg/dL (8.4-25.7) 09/10/19 11:09 Creatinine 1.04 mg/dL (0.7-1.3) 09/10/19 11:09 Glucose 108 mg/dL (70-105) H 09/10/19 11:09 Lactic Acid 2.0 mmol/L (0.5-2.2) 09/10/19 11:09 Calcium 9.0 mg/dL (7.8-10.44) 09/10/19 11:09 Total Bilirubin 2.6 mg/dL (0.2-1.2) H 09/10/19 11:09 AST 74 U/L (5-34) H 09/10/19 11:09 ALT 37 U/L (8-55) 09/10/19 11:09 Alkaline Phosphatase 86 U/L (40-110) 09/10/19 11:09 CK-MB (CK-2) 9.2 ng/mL (0-6.6) H* 09/10/19 11:09 Troponin I 0.038 ng/mL (< 0.028) H 09/10/19 11:09 Serum Total Protein 6.6 g/dL (6.0-8.3) 09/10/19 11:09 Albumin 3.4 g/dL (3.5-5.0) L 09/10/19 11:09 Lipase 25 U/L (8-78) 09/10/19 11:09 Hospitalist H&P A/P - Problem (1) CHF (congestive heart failure) Code(s): I50.9 - HEART FAILURE, UNSPECIFIED Status: Acute (2) Chest pain Code(s): R07.9 - CHEST PAIN, UNSPECIFIED Status: Acute (3) Elevated troponin level Code(s): R74.8 - ABNORMAL LEVELS OF OTHER SERUM ENZYMES Status: Acute (4) Hypertension Code(s): I10 - ESSENTIAL (PRIMARY) HYPERTENSION Status: Chronic (5) Peripheral neuropathy Code(s): G62.9 - POLYNEUROPATHY, UNSPECIFIED Status: Chronic (6) Pulmonary hypertension Code(s): I27.2 - OTHER SECONDARY PULMONARY HYPERTENSION * DO NOT USE * Status : Chronic - Plan Plan: Placed in telemetry. EKG showed right bundle branch block without ST-T abnormalities. Initial troponin was slightly elevated. Continue to trend troponins. Aspirin 325 was given in route. Continue aspirin 81 mg orally daily tomorrow. Start metoprolol tartrate 12.5 mg orally twice daily. Atorvastatin 40 mg orally nightly. Nitroglycerin sublingual as needed for pain. Consult cardiology. N.p.o. after midnight.
[2019-09-10] MEDS ORDERED: Nitroglycerin 0.4 MG TAB (25 Tab Bottle) SL PRN (14:10)
[2019-09-10 14:59] VITALS: BMI 20.5
[2019-09-10 15:45] LABS: Troponin I 0.044 ng/mL (< 0.028)
[2019-09-10 17:49] LABS: Amphetamine Not Detected (NotDetected); Barbiturates Screen Not Detected (NotDetected); Benzodiazepine Screen Not Detected (NotDetected); Cocaine Metabolite Screen Not Detected (NotDetected); Medtox Control Line Valid? VALID (VALID); Medtox Reader # READER 4; Methadone Not Detected (NotDetected); Methamphetamine Not Detected (NotDetected); Opiate Screen Not Detected (NotDetected); Oxycodone Screen Not Detected (NotDetected); Phencyclidine (PCP) Not Detected (NotDetected); THC/Cannabinoid Screen Not Detected (NotDetected); Tricyclic Screen Not Detected (NotDetected)
[2019-09-10 18:58] LABS: Troponin I 0.052 ng/mL (< 0.028)
[2019-09-10] MEDS: Vancomycin HCl 25 MG/ML Oral PO SCH (19:19)
--- NOTE | 2019-09-10 20:40 | CON ---
DATE OF CONSULTATION: 09/10/2019 PRIMARY ASSISTANT PLANT MANAGER: Robert Zamudio MD REASON FOR CONSULTATION: Chest pain. HISTORY OF PRESENT ILLNESS: Mr. Carolina is a 53-year-old white gentleman, who comes to the hospital for chest pain. He was at the [facility] recently, treated for C difficile colitis. He was admitted overnight and discharged home. He came in as he felt right-sided chest pain. He tells me that it is worse when he takes a deep breath or when he coughs. He had heart catheterization in this hospital in the past by Dr. Murrell in 2014, which showed no significant coronary artery disease. He has had multiple admissions for chest pain since. His troponin is always in the indeterminate range. Currently, he denies any more chest pain. He states that he is no longer having diarrhea. He is only having normal bowel movements. He states he was at [facility] for 1 whole week and he was discharged home, told he had septic shock secondary to C difficile colitis. PAST MEDICAL HISTORY: 1. Pulmonary hypertension. 2. Essential hypertension. 3. Depression. 4. Schizophrenia. 5. Bipolar disorder. 6. Polysubstance abuse. 7. Hepatitis C. 8. Recent C difficile colitis. SURGICAL HISTORY: 1. Right foot surgery. 2. Tonsillectomy. 3. Appendectomy. FAMILY HISTORY: Positive for early coronary artery disease. SOCIAL HISTORY: History of methamphetamine, marijuana, and cocaine use in the past. Continues to smoke. REVIEW OF SYSTEMS: A 12-point review of systems was done and was all negative unless stated in the history of present illness. OUTPATIENT MEDICATIONS: 1. Gabapentin. 2. Aspirin 81. 3. Atorvastatin 40 a day. 4. Tylenol p.r.n. 5. Tamsulosin. 6. Lisinopril. 7. Furosemide 10 mg b.i.d. 8. P.o. vancomycin added recently. ALLERGIES: NO KNOWN DRUG ALLERGIES. PHYSICAL EXAMINATION: VITAL SIGNS: Temperature 96.3, pulse 103, respiratory rate 19, satting 95% on 2 L nasal cannula, blood pressure 136/92. GENERAL: Awake, alert, and oriented x3, in no distress. HEENT: Normocephalic and atraumatic. NECK: Supple. LUNGS: Clear. CARDIOVASCULAR: S1 and S2. No S3 or S4. There is a grade 2/6 systolic murmur at the right upper sternal border. ABDOMEN: Soft. Positive bowel sounds. EXTREMITIES: No edema. SKIN: Warm and dry. LABORATORY DATA: Laboratory work is reviewed. Sodium of 136, potassium of 4.1. The rest of the metabolic was unremarkable except for a glucose of 108, total bilirubin of 2.6, AST of 74, and albumin of 3.4. CK-MB was 9.2. Troponin I was 0.03, 0.04, and 0.05. Toxicology was negative. Coags were normal. Hematology was normal with a white count of 6, hemoglobin of 15, hematocrit of 47, and platelet count of 94 in the low side. Chest x-ray, no evidence of CHF. Abdominal ultrasound, stable cholelithiasis with gallbladder sludge with mild collateral wall thickening, but no cholecystitis. Most recent echocardiogram was done in October 2018 showed an EF of 55% to 60% with a large right atrium, large right ventricle, severe TR and severely elevated right ventricular systolic pressures. ASSESSMENT: 1. Chest pain. Likely noncardiac, it hurts more when he takes a deep breath or when he moves. Likely musculoskeletal in nature. He had normal heart catheterization with normal coronaries in July 2014. 2. Chronically elevated troponins. Unchanged from his normal baseline. 3. Pulmonary hypertension. PLAN: 1. We will get an echocardiogram. 2. No plans for coronary angiogram at this time as he has had a negative one in the past and his troponin elevation is actually at his normal baseline. His symptoms are atypical. 3. Continue to treat C difficile colitis. 4. We will follow. Job ID: [id number]
[2019-09-10] MEDS ORDERED: FLU VACC QS2019-20(6MOS UP)/PF 60 MCG/0.5 ML SYRINGE IM ONE (21:00)
[2019-09-10] MEDS: Atorvastatin Calcium 40 MG TAB PO SCH (21:50)
[2019-09-10] MEDS: Gabapentin 100 MG CAP PO PRN (21:50)
[2019-09-10] MEDS: Furosemide 20 MG TAB PO SCH (21:50)
[2019-09-10] MEDS: Metoprolol Tartrate 25 MG TAB PO SCH (21:51)
[2019-09-10] MEDS: Lisinopril 2.5 MG TAB PO SCH (21:51)
[2019-09-11] MEDS: Vancomycin HCl 25 MG/ML Oral PO SCH ×4 (00:27→18:35)
--- NOTE | 2019-09-11 01:27 | CON ---
DATE OF CONSULTATION: 09/10/2019 REQUESTING PHYSICIAN: Marlon Sanchez MD HISTORY OF PRESENT ILLNESS: A 53-year-old man with history of chronic hepatitis C, chronic congestive heart failure, and essential hypertension, presented to the emergency department yesterday with acute onset chest pain. Acute coronary syndrome has been excluded. The patient's pain appears to be atypical. On my evaluation, the patient denies any pain; however, reports epigastric to right upper quadrant abdominal pain, which is intermittent, usually not associated with activity and has been present over the last three years. He denies any change in his bowel habits except for recent diarrhea, for which he was treated at local hospital for C diff colitis complicated by sepsis. He was recently discharged from the hospital. He apparently has had multiple workup of his chronic liver disease at the local hospital including what he describes as MRI and other studies. Ultrasound of his abdomen was obtained in this hospitalization which reveals multiple intraluminal gallstones with gallbladder wall thickening and no pericholecystic fluid. The patient reports that he has been told in the past that he has biliary sludge, but no stones. He denies any fevers or chills. He denies any jaundice. PAST MEDICAL HISTORY: Significant for chronic hepatitis C, unsure as to whether he has liver cirrhosis, essential hypertension, schizophrenia and bipolar disorder, chronic depression, recent C diff colitis with sepsis, and polysubstance abuse. PAST SURGICAL HISTORY: Pertinent for appendectomy; tonsillectomy and adenoidectomy; cardiac catheterization in 2014, which revealed no coronary artery disease; and some foot surgery. SOCIAL HISTORY: He is . He used to work as a nurse licensed practical. He has had history of a polysubstance abuse at various times including alcohol, methamphetamine, cocaine, and marijuana. FAMILY HISTORY: Noncontributory for this patient's age. PRE-HOSPITALIZATION MEDICATIONS: Include: 1. Atorvastatin 40 mg p.o. q.h.s. 2. Gabapentin 100 mg p.o. t.i.d. 3. Lisinopril 10 mg p.o. b.i.d. 4. Tamsulosin 0.4 mg p.o. daily. 5. Aspirin 81 mg p.o. daily. 6. Furosemide 20 mg p.o. b.i.d. 7. Acetaminophen 650 mg p.o. q.4 hours p.r.n. pain. ALLERGIES: THE PATIENT HAS NO KNOWN DRUG ALLERGIES. REVIEW OF SYSTEMS: Ten-point review of systems essentially unremarkable except as stated in past medical history and chief complaint. PHYSICAL EXAMINATION: GENERAL: This reveals a 53-year-old normally developed man, who is otherwise coherent, interactive, and appears stated age. The patient is alert and oriented x3. He appears to be in no acute distress at the time of my evaluation. VITAL SIGNS: Included blood pressure of 127/87, pulse 104, respiratory rate 16, temperature is 98.3 degrees Fahrenheit, oxygen saturation is 96% on 3 L by nasal cannula oxygen. HEENT: Reveals normocephalic and atraumatic. He has no scleral icterus present. Pupils are equal, round, reactive to light and accommodation. HEART: Reveals regular rate with sinus tachycardia. No murmurs or gallops auscultated. LUNGS: Clear to auscultation bilaterally. Breathing, regular and nonlabored. ABDOMEN: Soft, moderately distended, but nontender to palpation. Liver and spleen nonpalpable below costal margin. NEUROLOGIC: Reveals no focal deficits present. LABORATORY FINDINGS: Include a CBC with 6200 white blood cells, hemoglobin and hematocrit 15.7 and 47.7 respectively. Platelet count is 94,000. Metabolic profile: Sodium 136, potassium 4.1, chloride is 103, bicarb is 23, BUN 20, creatinine is 1.04, glucose 108, lactic acid 2.0, total bilirubin 2.6, AST and ALT 74 and 37 respectively. Troponin I in series were noted at 0.038, 0.044, and 0.052. Serum lipase is normal at 25. I have personally reviewed the abdominal ultrasound, which was obtained on this admission, which is remarkable for multiple intraluminal gallstones and biliary sludge. There is apparent aggregation of the sludge and stones in the gallbladder neck. There is gallbladder wall thickening with no associated pericholecystic fluid present. Common bile duct is normal in diameter for this patient's age at 5 mm. IMPRESSIONS: 1. Atypical chest pain/right upper quadrant abdominal pain, currently nonactive. 2. Cholelithiasis with evidence of chronic cholecystitis in the form of a gallbladder wall thickening, although there is no evidence of acute cholecystitis at this time. 3. History of liver disease and polysubstance abuse. RECOMMENDATIONS: We will obtain HIDA scan to better define the extent of the biliary disease and exclude any acute process. There is no immediate surgical indication for this patient at this time; however, we will make further recommendations based on the outcome of the HIDA scan. Above findings and plan discussed with the patient and his at bedside. They both indicated understanding of information given. Thank you again, Dr. Sanchez, for allowing me the opportunity to participate in the care of this patient. Job ID: [id number]
[2019-09-11 05:00] LABS: #Basophils 0.1 thou/uL (0.0-0.2); #Eosinphils 0.3 thou/uL (0.0-0.7); #Lymphocytes 1.5 thou/uL (1.20-3.40); #Monocytes 0.8 thou/uL (0.11-0.59); #Neutrophils 4.3 thou/uL (1.40-6.50); %Basophils 1.1 % (0.0-1.0); %Eosinophils 4.2 % (0.0-10.0); %Neutrophils 61.7 % (42.0-75.0); Hemoglobin 15.7 g/dL (14.0-18.0); Mean Corpuscular HGB CONC 31.9 g/dL (32.0-36.0); Mean Corpuscular Hemoglobin 30.1 pg (27.0-31.0); Mean Corpuscular Volume 94.5 fL (78.0-98.0); Mean Platelet Volume 10.1 fL (7.4-10.4); Platelet Count 106 thou/uL (130-400); RBC Distribution Width 15.9 % (11.5-14.5); Red Blood Cell (RBC) Count 5.21 mill/uL (4.70-6.10)
[2019-09-11 05:05] LABS: Anion Gap 15 mmol/L (10-20); BUN (Urea Nitrogen) 23 mg/dL (8.4-25.7); Calc. Creatinine Clearance 92 mL/min (70-130); Calcium 8.9 mg/dL (7.8-10.44); Carbon Dioxide 22 mmol/L (22-29); Chloride 104 mmol/L (98-107); Estimated GFR-MDRD 79; Glucose 98 mg/dL (70-105); Potassium 4.2 mmol/L (3.5-5.1); Sodium 137 mmol/L (136-145)
[2019-09-11 05:09] LABS: ALT (SGPT) 36 U/L (8-55); AST (SGOT) 69 U/L (5-34); Albumin 3.4 g/dL (3.5-5.0); Alkaline Phosphatase 126 U/L (40-110); Bilirubin, Direct 1.6 mg/dL (0.1-0.3); Bilirubin, Total 2.2 mg/dL (0.2-1.2); Protein, Total 6.6 g/dL (6.0-8.3)
[2019-09-11] MEDS: Lisinopril 2.5 MG TAB PO SCH ×2 (08:30→22:06)
[2019-09-11] MEDS: Furosemide 20 MG TAB PO SCH ×2 (08:30→22:06)
[2019-09-11] MEDS: Metoprolol Tartrate 25 MG TAB PO SCH ×2 (08:30→22:06)
[2019-09-11] MEDS: Enoxaparin Sodium 40 MG/0.4 ML SYRINGE SC SCH (08:51)
--- NOTE | 2019-09-11 11:27 | PDOC.EVN ---
Event Note - Event Note Event Note: patient of Dr Gregorio ( sp?). have called residents to see patient
--- NOTE | 2019-09-11 11:49 | PDOC.FM ---
- Subjective Subjective: He says he was unable to finish his HIDA scan. He got out of breath. He says he was hurting all over too. He is no longer having chest pain. He said his chest pain felt like tightness and he was really short of breath. He has had no PND. - Objective MAR Reviewed: Yes Vital Signs & Weight: Vital Signs (12 hours) Temp Pulse Resp BP BP Pulse Ox 09/11/19 11:06 96 14 130/98 H 95 09/11/19 07:55 97.2 F L 93 18 122/90 91 L 09/11/19 05:58 88 18 118/95 H 90 L 09/11/19 00:27 95 18 118/89 90 L Weight Weight 76.385 kg I&O: 09/10/19 09/11/19 09/12/19 06:59 06:59 06:59 Output Total 1400 Balance -1400 Result Diagrams: 09/11/19 04:25 09/11/19 04:25 Phys Exam - Physical Examination Constitutional: NAD HEENT: moist MMs, oral pharynx no lesions Neck: supple, full ROM Respiratory: no wheezing, no rales, no rhonchi, clear to auscultation bilateral Cardiovascular: RRR systolic murmur Gastrointestinal: soft, non-tender, positive bowel sounds Musculoskeletal: pulses present 1+ pitting edema Neurological: moves all 4 limbs Deviation from normal: Venous Stasis Dx/Plan (1) CHF (congestive heart failure) Code(s): I50.9 - HEART FAILURE, UNSPECIFIED Status: Acute (2) Chest pain Code(s): R07.9 - CHEST PAIN, UNSPECIFIED Status: Acute (3) Elevated troponin level Code(s): R74.8 - ABNORMAL LEVELS OF OTHER SERUM ENZYMES Status: Acute (4) Hyperbilirubinemia Code(s): E80.6 - OTHER DISORDERS OF BILIRUBIN METABOLISM Status: Acute (5) Hypertension Code(s): I10 - ESSENTIAL (PRIMARY) HYPERTENSION Status: Chronic (6) Peripheral neuropathy Code(s): G62.9 - POLYNEUROPATHY, UNSPECIFIED Status: Chronic (7) Poly-drug misuser Code(s): F19.10 - OTHER PSYCHOACTIVE SUBSTANCE ABUSE, UNCOMPLICATED Status: Chronic (8) Pulmonary hypertension Code(s): I27.2 - OTHER SECONDARY PULMONARY HYPERTENSION * DO NOT USE * Status : Chronic - Plan Plan: Pt is a 53 yo M with PMH of HTN, Pulm HTN, CHF, Hep C, peripheral neuropathy, Cor pulmonale, and BPH who presents fo chest tightness. 1. Chest Pain Trops: 0.038 > 0.044 > 0.052 * Cardiology consulted, appreciate recs * No need for cath at this time, trops are his baseline * Will get ECHO due to heart failure history 2. CHF * Strict I/O, fluid restricted diet * ASA and Metoprolol started * Continue home meds: Lisinopril, Lasix 3. Cor pulmonale 2/2 severe pulmonary HTN * Will monitor for signs and symptoms * Currently on home Lasix dose 4. RUQ Pain with Eleveated Bilirubin TB: 2.2 DB: 1.6 * Gen Surgery consulted, appreciate recs * Cholelithiasis with chronic cholecystitis with gallbladder wall thickening * HIDA scan * Trying to obtain records from [facility] 5. Transamnitis * Will monitor * Hx of Hep C Cirrhosis 6. Hx polysubstance abuse * Encourage cessation Code Status: Full Diet: NPO Activity: Ad Arleth DVT PPx: Lovenox Dispo: Tele inpt, LOS > 48H. Will await HIDA scan and ECHO.
[2019-09-11] MEDS: Aspirin Chewable 81 MG TAB PO SCH (13:30)
[2019-09-11] MEDS: Gabapentin 100 MG CAP PO PRN ×2 (14:24→22:08)
--- NOTE | 2019-09-11 15:43 | NM ---
Hepatobiliary scan: 09/11/2019 COMPARISON: 11/19/2018 HISTORY: Right upper quadrant pain, gallbladder disease TECHNIQUE: The patient was pretreated with 1.5 mcg of CCK. Then the patient was injected with 5.5 mCi technetium 99m labeled mebrofenin. FINDINGS: Prompt radiotracer activity is seen on post injection imaging. Bowel activity is seen by ap proximately 10 minutes. Gallbladder activity is noted at approximately 40-45 minutes. IMPRESSION: Gallbladder activity is seen on this examination consistent with patency of the cystic du ct.
--- NOTE | 2019-09-11 22:02 | PRG ---
DATE OF SERVICE: Please see note from Dr. Garcia, for which I agree. The patient was seen, evaluated, and discussed with the residents. This gentleman is being transferred to our care as he sees an [facility] doctor as his primary care, comes in for chest pain. Dr. Damon has already seen him, did not think it was coronary artery disease, probably more an issue with extremely high pressures in the right side of the heart and pulmonary hypertension, for which he is taking Lasix. He just got out of the hospital for prolonged Clostridium difficile infection and possible sepsis from that, but sounds like he still was extremely weak when he left the hospital. Does not sound like he has ever had a sleep study and then likely something we have to look into. Does have a history of hepatitis C that sounds like he is still on occasion using recreational drugs and is still probably not a good candidate for hep C treatment. HIDA scan came back normal. He is having some right upper quadrant pain and some thickened gallbladder wall, that was a question, but it looks like it is not the issue. Echocardiogram just shows the major right-sided elevated pressure, but otherwise EF is preserved at 50% to 55%. So, the plan is gentle diuresis, talk to Cardiology about if they want to add anything for pulmonary hypertension reasons, otherwise we will continue him on medications, try to get rehab involve and physical therapy and continue to treat the C diff with vancomycin as well. I talked about all things. Job ID: [id number]
[2019-09-11] MEDS: Atorvastatin Calcium 40 MG TAB PO SCH (22:06)
[2019-09-11] MEDS ORDERED: Melatonin 3 MG TAB PO SCH (23:45)
[2019-09-11] MEDS ORDERED: Ondansetron ODT 4 MG TAB PO SCH (23:45)
[2019-09-12] MEDS: Vancomycin HCl 25 MG/ML Oral PO SCH ×4 (00:05→18:33)
--- NOTE | 2019-09-12 05:54 | PDOC.FM ---
- Subjective Subjective: He is complaining of generalized abdominal pain that is worse in the lower quadrants. He says his legs are hurting. He says he has had 3 loose BM. He had 2 episodes of vomiting. - Objective MAR Reviewed: Yes Vital Signs & Weight: Vital Signs (12 hours) Temp Pulse Resp BP BP BP Pulse Ox 09/12/19 05:32 97.5 F L 97 16 116/77 94 L 09/11/19 23:28 97.5 F L 79 20 115/77 92 L 09/11/19 22:06 106 H 09/11/19 21:56 96.6 F L 106 H 22 H 113/80 91 L Weight Admit Weight 76.204 kg Weight 76.385 kg I&O: 09/10/19 09/11/19 09/12/19 06:59 06:59 06:59 Intake Total 410 Output Total 1400 Balance -1400 410 Result Diagrams: 09/11/19 04:25 09/11/19 04:25 EKG Reviewed by me: Yes (Sinus rhythm 90-100s) Phys Exam - Physical Examination Constitutional: NAD HEENT: moist MMs, oral pharynx no lesions Neck: supple, full ROM Respiratory: no wheezing, no rales, no rhonchi, clear to auscultation bilateral Cardiovascular: RRR, no significant murmur Gastrointestinal: soft Tender to palpation throughout Musculoskeletal: pulses present 1+ pitting edema Neurological: moves all 4 limbs Psychiatric: normal affect Deviation from normal: Venous stasis Dx/Plan (1) CHF (congestive heart failure) Code(s): I50.9 - HEART FAILURE, UNSPECIFIED Status: Acute (2) Chest pain Code(s): R07.9 - CHEST PAIN, UNSPECIFIED Status: Acute (3) Elevated troponin level Code(s): R74.8 - ABNORMAL LEVELS OF OTHER SERUM ENZYMES Status: Acute (4) Hyperbilirubinemia Code(s): E80.6 - OTHER DISORDERS OF BILIRUBIN METABOLISM Status: Acute (5) Hypertension Code(s): I10 - ESSENTIAL (PRIMARY) HYPERTENSION Status: Chronic (6) Peripheral neuropathy Code(s): G62.9 - POLYNEUROPATHY, UNSPECIFIED Status: Chronic (7) Poly-drug misuser Code(s): F19.10 - OTHER PSYCHOACTIVE SUBSTANCE ABUSE, UNCOMPLICATED Status: Chronic (8) Pulmonary hypertension Code(s): I27.2 - OTHER SECONDARY PULMONARY HYPERTENSION * DO NOT USE * Status : Chronic - Plan Plan: Pt is a 53 yo M with PMH of HTN, Pulm HTN, CHF, Hep C, peripheral neuropathy, Cor pulmonale, and BPH who presents fo chest tightness. 1. Chest Pain Trops: 0.038 > 0.044 > 0.052 * Cardiology consulted, appreciate recs * No need for cath at this time, trops are his baseline * ECHO: EF 50-55% with I/III Diastolic dysfunction, RV overload, PAP of 65 mm Hg, dilated left atrium, enlarged right atrium, mitral annular calcification, mild MR, AV sclerosis, Severe TR, Dilated aortic root of 4 cm. -Will set up for sleep study outpatient for severely elevated right sided heart pressures 2. CHF * Strict I/O, fluid restricted diet * ASA and Metoprolol started * Continue home meds: Lisinopril, Lasix * prn IV lasixs for fluid build up 3. C. Diff infection Currently on Vancomycin * Pt states he is to complete 14 day course of Abx * He is currently on day # 11 * Will continue precautions 4. Cor pulmonale 2/2 severe pulmonary HTN * Will monitor for signs and symptoms * Currently on home Lasix dose 5. RUQ Pain with Eleveated Bilirubin TB: 2.2 DB: 1.6 * Gen Surgery consulted, appreciate recs * Cholelithiasis with chronic cholecystitis with gallbladder wall thickening * HIDA scan: patency of cystic duct * Will contact surgery to see what current management for the patient * Trying to obtain records from [facility] 6. Transamnitis * Will monitor * Hx of Hep C Cirrhosis 7. Hx polysubstance abuse * Encourage cessation 8. Venous Stasis Patients legs are currently only slightly edematous with trace edema Code Status: Full Diet: NPO Activity: Ad Arleth DVT PPx: Lovenox Dispo: Tele inpt, LOS > 48H. Will await Gen surg recs.
[2019-09-12] MEDS ORDERED: Furosemide 20 MG/2 ML VIAL SLOW IVP SCH (08:00)
[2019-09-12 08:32] LABS: #Basophils 0.1 thou/uL (0.0-0.2); #Eosinphils 0.2 thou/uL (0.0-0.7); #Lymphocytes 1.6 thou/uL (1.20-3.40); #Monocytes 0.8 thou/uL (0.11-0.59); #Neutrophils 4.1 thou/uL (1.40-6.50); %Basophils 1.7 % (0.0-1.0); %Eosinophils 2.7 % (0.0-10.0); %Lymphocytes 23.7 % (21.0-51.0); %Monocytes 11.4 % (0.0-10.0); %Neutrophils 60.5 % (42.0-75.0); Hemoglobin 15.4 g/dL (14.0-18.0); Mean Corpuscular HGB CONC 32.9 g/dL (32.0-36.0); Mean Corpuscular Hemoglobin 30.4 pg (27.0-31.0); Mean Corpuscular Volume 92.5 fL (78.0-98.0); Mean Platelet Volume 9.1 fL (7.4-10.4); Platelet Count 121 thou/uL (130-400); RBC Distribution Width 15.7 % (11.5-14.5); Red Blood Cell (RBC) Count 5.05 mill/uL (4.70-6.10); White Blood Cell (WBC) Count 6.8 thou/uL (4.8-10.8)
[2019-09-12 08:43] LABS: Anion Gap 12 mmol/L (10-20); BUN (Urea Nitrogen) 22 mg/dL (8.4-25.7); Calc. Creatinine Clearance 89 mL/min (70-130); Carbon Dioxide 21 mmol/L (22-29); Chloride 105 mmol/L (98-107); Estimated GFR-MDRD 77; Glucose 92 mg/dL (70-105); Potassium 4.3 mmol/L (3.5-5.1); Sodium 134 mmol/L (136-145)
[2019-09-12] MEDS: Furosemide 20 MG TAB PO SCH ×2 (09:20→20:58)
[2019-09-12] MEDS: Aspirin Chewable 81 MG TAB PO SCH (09:20)
[2019-09-12] MEDS: Lisinopril 2.5 MG TAB PO SCH (09:21)
[2019-09-12] MEDS: Metoprolol Tartrate 25 MG TAB PO SCH ×2 (09:21→20:58)
[2019-09-12] MEDS ORDERED: Acetaminophen 325 MG TAB PO PRN (10:10)
[2019-09-12] MEDS: Enoxaparin Sodium 40 MG/0.4 ML SYRINGE SC SCH (12:07)
--- NOTE | 2019-09-12 13:09 | PRG ---
DATE OF SERVICE: SUBJECTIVE: Please see note from Dr. Mo Garcia, for which I agree. This complicated gentleman, who is here, still complaining of abdominal pain, maybe a little bit of loose stool. Does have the Clostridium difficile, for which being he is treated. Initially came in with chest pain, it sounds like that has improved. Known right-sided cardiac increased pressures, it sounds like he was told that numerous years ago with the heart catheterization, he states maybe up to [address] Damon was seeing him here and we diuresed him some. No evidence of failure currently. Did vomit, unclear exactly why. Question if he completed his HIDA scan or not, as initially was put that he did not, but there is report that looks like it is normal. Does have gallstones, but Surgery did not think that this is a surgical case or was causing his symptoms. PHYSICAL EXAMINATION: CHEST: Clear. CARDIOVASCULAR: Regular rate and rhythm. ABDOMEN: Just kind of diffusely mildly tender in all four quadrants. No rebound or guarding. His blood workup otherwise looks normal. So, we will see what Cardiology says and what Surgery said about the gallstone, but it sounds like be discharged on p.r.n. medications for nausea, vomiting, abdominal pain, and we will continue Clostridium difficile management doing anything more for him here if Surgery does not think he is a surgical case. Job ID: [id number]
[2019-09-12] MEDS: Gabapentin 100 MG CAP PO SCH ×2 (18:32→20:57)
[2019-09-12] MEDS: Lisinopril 10 MG TAB PO SCH (20:57)
[2019-09-12] MEDS: Atorvastatin Calcium 40 MG TAB PO SCH (20:57)
[2019-09-12] MEDS ORDERED: Atorvastatin Calcium 40 MG TAB PO SCH (21:00)
[2019-09-13] MEDS: Vancomycin HCl 25 MG/ML Oral PO SCH ×3 (05:33→11:35)
[2019-09-13 07:50] VITALS: TEMP 97.3
--- NOTE | 2019-09-13 08:29 | CON ---
DATE OF CONSULTATION: 09/11/2019 ADDENDUM: Mr. Carolina is a 53-year-old man with his history of chronic liver disease. The patient tolerated diet yesterday. HIDA scan was obtained today, which did not reveal any biliary obstruction as both the gallbladder and small bowel were visualized. The patient, however, refused to complete the study with CCK to evaluate ejection fraction. In the absence of clinical radiographic evidence of acute cholecystitis in this patient with significant comorbidities, there is no further general surgical indication for his care. I recommend conservative management. General Surgery will sign off at this time and be available to re-evaluate the patient on demand. Job ID: [id number]
[2019-09-13] MEDS ORDERED: Tamsulosin HCl 0.4 MG CAP PO SCH (09:00)
[2019-09-13] MEDS: Metoprolol Tartrate 25 MG TAB PO SCH (09:38)
[2019-09-13] MEDS: Furosemide 20 MG TAB PO SCH (09:38)
[2019-09-13] MEDS: Gabapentin 100 MG CAP PO SCH (09:38)
[2019-09-13] MEDS: Aspirin Chewable 81 MG TAB PO SCH (09:38)
[2019-09-13] MEDS: Lisinopril 10 MG TAB PO SCH (09:38)
[2019-09-13] MEDS: Enoxaparin Sodium 40 MG/0.4 ML SYRINGE SC SCH (09:41)
[2019-09-13 10:24] VITALS: BP 112/74
--- NOTE | 2019-09-13 11:48 | PDOC.FM ---
- Subjective Subjective: He has no nausea or vomiting. He is eating well. He says he has a little pain in his legs. - Objective MAR Reviewed: Yes Vital Signs & Weight: Vital Signs (12 hours) Temp Pulse Pulse Pulse Resp BP BP 09/13/19 09:38 100/70 09/13/19 08:45 87 107 H 112/74 09/13/19 07:36 97.3 F L 89 18 BP BP Pulse Ox 09/13/19 09:38 09/13/19 08:45 93/64 09/13/19 07:36 112/74 100 Weight Admit Weight 76.204 kg Weight 76.385 kg I&O: 09/12/19 09/13/19 09/14/19 06:59 06:59 06:59 Intake Total 570 1442 Output Total 590 Balance 570 852 Result Diagrams: 09/12/19 08:05 09/12/19 08:05 Phys Exam - Physical Examination Constitutional: NAD HEENT: moist MMs, oral pharynx no lesions Neck: supple, full ROM Respiratory: no wheezing, no rales, no rhonchi, clear to auscultation bilateral Cardiovascular: RRR, no significant murmur Gastrointestinal: soft, non-tender, positive bowel sounds Musculoskeletal: no edema, pulses present Neurological: moves all 4 limbs Lymphatic: no nodes Psychiatric: normal affect Skin: no rash, normal turgor Dx/Plan (1) CHF (congestive heart failure) Code(s): I50.9 - HEART FAILURE, UNSPECIFIED Status: Acute (2) Chest pain Code(s): R07.9 - CHEST PAIN, UNSPECIFIED Status: Acute (3) Elevated troponin level Code(s): R74.8 - ABNORMAL LEVELS OF OTHER SERUM ENZYMES Status: Acute (4) Hyperbilirubinemia Code(s): E80.6 - OTHER DISORDERS OF BILIRUBIN METABOLISM Status: Acute (5) Hypertension Code(s): I10 - ESSENTIAL (PRIMARY) HYPERTENSION Status: Chronic (6) Peripheral neuropathy Code(s): G62.9 - POLYNEUROPATHY, UNSPECIFIED Status: Chronic (7) Poly-drug misuser Code(s): F19.10 - OTHER PSYCHOACTIVE SUBSTANCE ABUSE, UNCOMPLICATED Status: Chronic (8) Pulmonary hypertension Code(s): I27.2 - OTHER SECONDARY PULMONARY HYPERTENSION * DO NOT USE * Status : Chronic - Plan Plan: Pt is a 53 yo M with PMH of HTN, Pulm HTN, CHF, Hep C, peripheral neuropathy, Cor pulmonale, and BPH who presents fo chest tightness. 1. Chest Pain Trops: 0.038 > 0.044 > 0.052 * Cardiology consulted, appreciate recs * No need for cath at this time, trops are his baseline * ECHO: EF 50-55% with I/III Diastolic dysfunction, RV overload, PAP of 65 mm Hg, dilated left atrium, enlarged right atrium, mitral annular calcification, mild MR, AV sclerosis, Severe TR, Dilated aortic root of 4 cm. -Will set up for sleep study outpatient for severely elevated right sided heart pressures 2. CHF * Strict I/O, fluid restricted diet * ASA and Metoprolol started * Continue home meds: Lisinopril, Lasix * prn IV lasixs for fluid build up 3. C. Diff infection Currently on Vancomycin * Pt states he is to complete 14 day course of Abx * He is currently on day # 12 * Will continue precautions * Sent Abx to pharmacy 4. Cor pulmonale 2/2 severe pulmonary HTN * Will monitor for signs and symptoms * Currently on home Lasix dose 5. RUQ Pain with Eleveated Bilirubin TB: 2.2 DB: 1.6 * Gen Surgery consulted, appreciate recs * Cholelithiasis with chronic cholecystitis with gallbladder wall thickening * HIDA scan: patency of cystic duct * Will contact surgery to see what current management for the patient * Trying to obtain records from [facility] 6. Transamnitis * Will monitor * Hx of Hep C Cirrhosis 7. Hx polysubstance abuse * Encourage cessation 8. Venous Stasis Patients legs are currently only slightly edematous with trace edema Code Status: Full Diet: NPO Activity: Ad Arleth DVT PPx: Lovenox Dispo: Tele inpt, LOS > 48H. Sent his home medications to his pharmacy in [place]. Will contact his PCP about his stay and told him to call and make an appointment.
--- NOTE | 2019-09-14 14:13 | DIS ---
DATE OF ADMISSION: 09/10/2019 DATE OF DISCHARGE: 09/13/2019 RESIDENT: Mo Garcia MD ADMITTING ATTENDING: Jonel Pimentel MD The patient was originally admitted by the [facility], but transferred to [facility] since the PCP of the patient was Dr. Keita, who works at [facility]. DISCHARGE ATTENDING: Suhail Rhodes MD CONSULTS: * Cardiology, Dr. Damon on 09/10. Recommendation is echocardiogram and no plan for catheterization at this time. He had a negative one in the past and his troponin level is at his baseline. His symptoms are atypical. Continue to treat C diff, * Gen Surg, Dr. Lopez. On 09/11. The patient had a HIDA scan, which did not reveal any biliary obstruction as both the gallbladder and small bowel were visualized. The patient refused to complete the CCK to evaluate ejection fraction. In the absence of acute cholecystitis in this patient, there was no further surgical indication and recommend conservative management. PROCEDURES: * Abdominal ultrasound on 09/10 shows stable cholelithiasis with gallbladder sludge and mild collateral wall thickening. There is no evidence to suggest acute calculous cholecystitis. * Chest x-ray, 09/10 showed no acute pulmonary findings. Mild cardiomegaly without congestive heart failure and * HIDA biliary scan on 09/11 showed gallbladder activity consistent with patency of the cystic duct. * Echo, 09/11 showed EF of 50% to 55% with grade 1/3 diastolic dysfunction, flattened in diastole, D-shaped left ventricle consistent with right ventricular volume overload. Severely enlarged right ventricle cavity with severely reduced right ventricle systolic function, mildly dilated left atrium, mildly enlarged right atrium size. Mitral annular calcification is present. Mild mitral regurgitation, aortic valve sclerosis but opens well, mild aortic regurg, severe tricuspid regurg, severely elevated pulmonary artery pressure estimated at 65 mmHg, dilated aortic root at 4 cm. PRIMARY DIAGNOSES: 1. Chest pain. 2. Congestive heart failure. 3. Clostridium difficile infection. 4. Cor pulmonale secondary to severe pulmonary hypertension. 5. Right upper quadrant pain with elevated bilirubin. 6. Transaminitis. SECONDARY DIAGNOSES: 1. History of polysubstance abuse. 2. Venous stasis. DISCHARGE MEDICATIONS: 1. Aspirin 81 mg daily. 2. Atorvastatin 40 mg at bedtime. 3. Lasix 20 mg p.o. daily. 4. Gabapentin 100 mg p.o. t.i.d. 5. Lisinopril 10 mg p.o. daily. 6. Metoprolol 12.5 mg p.o. b.i.d. 7. Vancomycin 125 mg p.o. q.6 hours for 2 more days. DISCONTINUED MEDICATIONS: 1. Tylenol. 2. Nitrostat. HISTORY OF PRESENT ILLNESS: The patient is a 53-year-old male with a history of hypertension, CHF, and peripheral neuropathy, who presents to the hospital with complaints of central chest tightness that started earlier today after awakening from sleep, the patient's pain did not radiate and was associated with palpitations and shortness of breath. It persisted until receiving nitroglycerin in the ED. The patient denies any current pain. He was recently discharged from another hospital after being treated for C diff. The patient states that he has at least 7 days ago on his oral vancomycin. 1. Atypical chest pain. Troponins were 0.038, 0.044 and 0.052. * Cardiology consulted. * Recommendations as above. * Recommend following up with a sleep study after echo was preformed. 2. CHF. * Aspirin and metoprolol started. * Continue home lisinopril and Lasix. 3. C diff. * Sent home with 2 days of vancomycin to complete 14-day course. 4. Cor pulmonale secondary to severe pulmonary hypertension, currently on his home Lasix dose. 5. Right upper quadrant pain with elevated bilirubin. * Gen Surg was consulted. * HIDA scan was negative. * Recommend conservative management transaminitis. 6. History of hep C cirrhosis. 7. History of polysubstance abuse. * Encouraged cessation. 8. Venous stasis. * The patient's legs had trace edema at discharge. DISPOSITION: Stable. DISCHARGE INSTRUCTIONS: 1. Location: Home. 2. Diet: Heart healthy, low-sodium. 3. Activity: As tolerated. 4. Followup: With Dr. Keita in 7 days. Recommended pulmonology referral to elicit the cause of his increased right- sided heart pressures that are most likely pulmonary related. Job ID: [id number] [facility]
== END 2019-09-13 11:56 | disposition home or self-care (01) ==
LOC: ERS 10:45 → 2SW 14:31
PROVIDERS: ADMIT Internal Medicine; ATTEND Internal Medicine
DX: R07.89 Other chest pain (principal); I11.0 Hypertensive heart disease with heart failure; I50.9 Heart failure, unspecified; A04.72 Enterocolitis due to Clostridium difficile, not specified as recurrent; I27.81 Cor pulmonale (chronic); I27.20 Pulmonary hypertension, unspecified; K80.10 Calculus of gallbladder with chronic cholecystitis without obstruction; K74.69 Other cirrhosis of liver; E80.6 Other disorders of bilirubin metabolism; G62.9 Polyneuropathy, unspecified; I87.8 Other specified disorders of veins; R74.0 Nonspecific elevation of levels of transaminase and lactic acid dehydrogenase [LDH]; F20.9 Schizophrenia, unspecified; F31.9 Bipolar disorder, unspecified; F17.200 Nicotine dependence, unspecified, uncomplicated; Z79.82 Long term (current) use of aspirin; Z79.899 Other long term (current) drug therapy; Z86.19 Personal history of other infectious and parasitic diseases
CPT/HCPCS: 71045; 76705; 78227; 80048 ×2; 80053; 80076; 80306; 82553; 83605; 83690; 84484 ×2; 85025 ×3; 85610; 85730; 93005; 93306; 97139 ×5; 99285; A9537; 36415; 96374; G0378; J1940; Q0162

== ENCOUNTER 2020-02-22 14:21 | Inpatient (IN) | payer MEDICARE, OTHER ==
[2020-02-22 15:22] LABS: #Basophils 0.1 thou/uL (0.0-0.2); #Eosinphils 0.2 thou/uL (0.0-0.7); #Lymphocytes 0.9 thou/uL (1.20-3.40); #Monocytes 0.8 thou/uL (0.11-0.59); #Neutrophils 5.6 thou/uL (1.40-6.50); %Basophils 0.8 % (0.0-1.0); %Eosinophils 3.2 % (0.0-10.0); %Lymphocytes 11.6 % (21.0-51.0); %Monocytes 10.5 % (0.0-10.0); %Neutrophils 73.8 % (42.0-75.0); Hemoglobin 14.3 g/dL (14.0-18.0); Mean Corpuscular Hemoglobin 27.5 pg (27.0-31.0); Mean Corpuscular Volume 88.7 fL (78.0-98.0); Mean Platelet Volume 10.1 fL (7.4-10.4); Platelet Count 107 thou/uL (130-400); RBC Distribution Width 19.8 % (11.5-14.5); Red Blood Cell (RBC) Count 5.19 mill/uL (4.70-6.10); White Blood Cell (WBC) Count 7.6 thou/uL (4.8-10.8)
[2020-02-22 15:34] LABS: Anisocytosis SLIGHT = 6-15 cells (100X) (0-5/hpf); MDiff Complete? YES; Ovalocytes SLIGHT = 2-5 cells (100X) (0-1/hpf); Platelet Morphology Comment Appears Decreased; Polychromasia SLIGHT = 2-3 cells (100X) (0-2/hpf)
[2020-02-22 15:45] LABS: ALT (SGPT) 24 U/L (8-55); AST (SGOT) 69 U/L (5-34); Albumin 3.7 g/dL (3.5-5.0); Alkaline Phosphatase 69 U/L (40-110); Anion Gap 23 mmol/L (10-20); BUN (Urea Nitrogen) 21 mg/dL (8.4-25.7); Bilirubin, Total 7.6 mg/dL (0.2-1.2); Calc. Creatinine Clearance 0 mL/min (70-130); Calcium 9.2 mg/dL (7.8-10.44); Carbon Dioxide 17 mmol/L (22-29); Chloride 99 mmol/L (98-107); Estimated GFR-MDRD 47; Globulin 3.2 g/dL (2.4-3.5); Glucose 81 mg/dL (70-105); Lipase 6 U/L (8-78); Potassium 3.3 mmol/L (3.5-5.1); Protein, Total 6.9 g/dL (6.0-8.3); Sodium 136 mmol/L (136-145)
[2020-02-22] MEDS ORDERED: Iopamidol-370 76% 500 ML 1 ML ONE (15:47)
--- NOTE | 2020-02-22 16:18 | RAD ---
CHEST ONE VIEW: 02/22/20 HISTORY: Hypoglycemia. COMPARISON: 09/10/19. FINDINGS: Heart size is enlarged. No pneumothorax. No effusion. No confluent air space consolidation. No acute osseous abnormality. IMPRESSION: Cardiomegaly. Otherwise unremarkable exam. POS: HOME
[2020-02-22 16:38] LABS: Prothrombin Time 22.7 sec (12.0-14.7)
--- NOTE | 2020-02-22 16:55 | CT ---
CT BRAIN WITHOUT CONTRAST: HISTORY: Altered mental status FINDINGS: No evidence of acute infarct, hemorrhage, midline shift or abnormal extra-axial fluid collections is seen. The ventricular size is appropriate and the basilar cisterns are patent. The bony calvarium is intact. The visualized paranasal sinuses and mastoid air cells are well aerated. IMPRESSION: No CT evidence of acute intracranial process.
[2020-02-22 17:06] LABS: Actual Bicarbonate (HCO3a) 17.1 mEq/L (22-28); Analyzer IN Cardio ER; Base Excess (BEa) -6.2 mEq/L (-2.0 to +3.0); CO2 Tension 28.1 mmHg (35.0-45.0); Calcium, Ionized (arterial) 1.07 mmol/L (1.12-1.30); Carboxyhemoglobin (COHb) 0.4 gm% (0.0-3.0); Hemoglobin (Hb) 13.6 g/dL (14.0-18.0); O2 Tension (PaO2), arterial 110.5 mmHg (80.0-100.0); Potassium - ABG Lab 3.31 mmol/L (3.70-5.30)
[2020-02-22 17:09] LABS: Puncture Site LRA
[2020-02-22 17:10] LABS: ALV-art Gradient 567.375 (0-20)
--- NOTE | 2020-02-22 17:17 | CT ---
Exam: CT angiogram of the chest HISTORY: Unresponsive patient. Hypoglycemia. Abdominal pain. COMPARISON: 08/06/2014 TECHNIQUE: CT angiogram of the chest is performed in the axial plane. Three-dimensional reformatted i mages are submitted for interpretation FINDINGS: Limited evaluation due to motion degradation Mediastinum: No mass, lymphadenopathy or hematoma. HEART: Cardiomegaly. Stable moderate pericardial effusion along the left heart border. The right atri um and right ventricle are prominent. There is reflux of contrast into the vena cava and hepatic vein suggesting right heart failure. Aorta: Limited evaluation due to lack of adequate contrast opacification and due to motion degradatio n Upper solid abdominal viscera: Mild edematous change in the mesentery suggesting the epigastric regio n. Refer to separate abdomen CT report for further detail. CT evidence of cholelithiasis Trachea and central bronchi: Patent Pleural spaces: Small right pleural effusion. Lung parenchyma: Right lower lobe passive atelectasis adjacent to pleural effusion. No suspicious mas ses or consolidation. Lung. Minimal atelectatic change in the left upper lobe. Pneumothorax: None Osseous structures: No lytic or blastic lesions Pulmonary arteries:Limited evaluation of the pulmonary arterial system to the level of the lobar bert kory due to motion degradation. No filling defect to suggest thromboembolism. Segmental and subsegmental arteries cannot be adequately assessed IMPRESSION: 1. Limited evaluation due to motion degradation 2. No evidence of pulmonary artery embolism to the level of the lobar arteries 3. Cardiomegaly with pericardial fluid. Small right-sided pleural effusion. Correlate for congestive heart failure 4. Right heart failure with reflux of contrast. There is dilatation of the right atrium and right trice tricle.
--- NOTE | 2020-02-22 17:25 | CT ---
EXAM: CT ABDOMEN AND PELVIS HISTORY: Hypoglycemic patient. Unresponsive. Abdominal pain. COMPARISON: 11/17/2018 Procedure: Multiple contiguous axial images were obtained and a CT of the abdomen and pelvis with IV contrast. C oronal reformats were performed. FINDINGS: Lower Chest: Small right-sided effusion with adjacent passive atelectasis Vessels: Normal caliber aorta. Heart: Cardiomegaly with pericardial fluid. Dilatation of the right atrium and right ventricle. Reflu x of contrast suggesting right heart failure Abdomen: Portal vein:Patent Gallbladder: Cholelithiasis. Mild stranding and edema. Correlate for cholecystitis with right upper q uadrant ultrasound Liver: Diffuse hypoattenuation suggesting hepatic steatosis. No enhancing liver masses Pancreas: Atrophic with decreased parenchymal volume in the head and body of the pancreas. Spleen: within normal limits. Adrenals: within normal limits. Kidneys: Symmetric enhancement. No obstructive uropathy. Peritoneum: There is straightening of the central abdominal mesentery predominantly in the epigastric region. Small amount of fluid is suggested in both pericolic gutters. There is no mass or free air. Small amount of perihepatic fluid. Bowel: Limited evaluation by the lack of oral contrast. There does appear to be mild mucosal thickeni ng involving the gastric antrum and duodenum. There is mild hyperemia. Correlate for peptic ulcer disease. Multiple normal caliber small bowel loops. Normal ileocecal junction. Mucosal thickening of the ascending colon. Correlate for colitis. Scattered fecal material in nondistended, nondilated left hemicolon. Diverticulosis, without evidence of diverticulitis. Appendix is not appreciated. No s econdary signs of appendicitis. Mesentery and Retroperitoneum: No enlarged mesenteric or retroperitoneal lymph nodes. Abdominal Wall: Scattered edema suggesting component of anasarca Pelvis: Reproductive Organs: Nonenlarged prostate gland Pelvis: No mass, lymphadenopathy, free air or free fluid. Bladder: within normal limits. Bones: within normal limits. IMPRESSION: 1. Cardiomegaly. Right heart failure. 2. Right-sided effusion. 3. CT evidence of cholelithiasis without definite evidence of cholecystitis. 4. Standing abdominal mesentery centrally along with small amount of right perihepatic fluid. Correla te for edematous change possibly secondary to peptic ulcer disease involving the gastric antrum and duodenum. No evidence of definite free air or perforation. 5. Mucosal thickening involving the ascending colon, nonspecific. Correlate for colitis.
--- NOTE | 2020-02-22 18:24 | PDOC.FPRHP ---
- History of Present Illness Chief Complaint: AMS History of Present Illness: 54-year-old male presents the ED by EMS complaining of abdominal pain. Per ED, EMS reports patient was unresponsive upon their arrival D stick was 16. Patient was given D10 and thiamine, D stick was 104 after intervention. Patient was a poor historian but reports left lower quadrant abdominal pain persisting intermittently for 2 weeks. Patient states he is a bulging to the area. Last bowel movement was this morning and he reports blood streaked stools. He denies taking any medication before this episode. He reports active methamphetamine use with last use last week. Patient denies NVD, fevers, chills, urinary complaints or testicular pain/swelling. He endorses a cough with sputum production that has been persistent for the last couple weeks. ED Course: started on D5 LR, imaging of chest, a/p, head performed. - Allergies/Adverse Reactions Allergies Allergy/AdvReac Type Severity Reaction Status Date / Time No Known Drug Allergies Allergy Verified 09/10/19 20:40 - Home Medications Medication Instructions Recorded Confirmed Type Acetaminophen [Tylenol Regular 650 mg PO Q4H PRN tab 01/08/19 02/22/20 Rx Strength] Tamsulosin HCl 1 tab PO DAILY 09/10/19 02/22/20 History Aspirin 81 mg PO DAILY 30 Days #30 tab.chew 09/12/19 02/22/20 Rx Furosemide [Lasix] 20 mg PO BID #60 tablet 09/12/19 02/22/20 Rx Lisinopril 10 mg PO BID 30 Days #60 tablet 09/12/19 02/22/20 Rx Gabapentin [Neurontin] 100 mg PO TID 02/22/20 02/22/20 History - History PMHx: R sided HF, CKD, Substance abuse, HTN, HCV, PUD PSHx: appendectomy FHx: noncontributory Social: uses methamphetamines, last use last week, denies alcohol and tobacco use - Review of Systems General: denies: fever/chills, weight/appetite/sleep changes Eyes: denies: eye pain, vision changes ENT: denies: nasal congestion, rhinorrhea Respiratory: reports: cough, shortness of breath Cardiovascular: reports: edema. denies: chest pain, palpitation Gastrointestinal: reports: abdominal pain, GI bleeding. denies: nausea, vomiting, diarrhea Genitourinary: denies: incontinence, dysuria Skin: denies: rashes, lesions Musculoskeletal: denies: pain, tenderness Neurological: reports: syncope. denies: numbness - Vital signs BP: 128/89, MAP: 102, Pulse: 107, Resp: 17, Pain: 0, O2 sat: 100 on (Room Air) Wt: 90.7 kg - Physical Exam Constitutional: well developed HEENT: normocephalic and atraumatic, PERRLA Neck: supple, FROM Heart: RRR, normal S1/S2 Lungs: CTAB, no respiratory distress Abdomen: soft -Abdomen: Tender to palpation diffusely with voluntary guarding, no rebound tenderness Musculoskeletal: normal structure, normal tone Neurological: no focal deficit, CN II-XII intact -Skin: Jaundice of abdomen and head, abrasions on abdomen, ulcerated 2 cm growth on back -Psychiatric: tired, arousable FMR H&P: Results - Labs Result Diagrams: 02/23/20 19:44 02/23/20 03:50 Lab results: WBC 7.6 thou/uL (4.8-10.8) 02/22/20 15:12 Hgb 14.3 g/dL (14.0-18.0) 02/22/20 15:12 Hct 46.1 % (42.0-52.0) 02/22/20 15:12 MCV 88.7 fL (78.0-98.0) 02/22/20 15:12 Plt Count 107 thou/uL (130-400) L 02/22/20 15:12 Neutrophils % 73.8 % (42.0-75.0) 02/22/20 15:12 ABG pH 7.40 (7.35-7.45) 02/22/20 17:00 ABG pCO2 28.1 mmHg (35.0-45.0) L 02/22/20 17:00 ABG pO2 110.5 mmHg (80.0-100.0) H 02/22/20 17:00 Sodium 136 mmol/L (136-145) 02/22/20 15:12 Potassium 3.3 mmol/L (3.5-5.1) L 02/22/20 15:12 Chloride 99 mmol/L (98-107) 02/22/20 15:12 Carbon Dioxide 17 mmol/L (22-29) L 02/22/20 15:12 BUN 21 mg/dL (8.4-25.7) 02/22/20 15:12 Creatinine 1.54 mg/dL (0.7-1.3) H 02/22/20 15:12 Glucose 81 mg/dL (70-105) 02/22/20 15:12 Calcium 9.2 mg/dL (7.8-10.44) 02/22/20 15:12 Total Bilirubin 7.6 mg/dL (0.2-1.2) H 02/22/20 15:12 AST 69 U/L (5-34) H 02/22/20 15:12 ALT 24 U/L (8-55) 02/22/20 15:12 Alkaline Phosphatase 69 U/L (40-110) 02/22/20 15:12 Ammonia 34 umol/L (18-72) 02/22/20 16:20 Serum Total Protein 6.9 g/dL (6.0-8.3) 02/22/20 15:12 Albumin 3.7 g/dL (3.5-5.0) 02/22/20 15:12 Lipase 6 U/L (8-78) L 02/22/20 15:12 troponin 0.042 BNP 1210 CK 545 CK 0.77 Drug screen + for amphetamines - EKG Interpretation EKG: no evidence of acute ischemia - Radiology Interpretation CT scan - abdomen Status: report reviewed by me Additional comment: PUD, no obvious perforation, evidence for cholecystitis CT scan - chest Status: report reviewed by me Additional comment: no evidence of PE, small R pleural effusion, evidence of R HF Chest x-ray Status: report reviewed by me Additional comment: Cardiomegaly, no acute processes CT scan - head Status: report reviewed by me Additional comment: No acute intracranial processes, no hemorrhage FMR H&P: A/P - Plan Encephalopathy: -Likely 2/2 hypoglycemia vs substance abuse - CTH negative - monitor BG - monitor for withdrawal sx - COVID test - AM serum cortisol - TSH, CK, CPK, Cholecystitis - CT abdomen with concern, f/u US showing cholelithiasis possible cholecystitis - cefepime - flagyl HF - Echo 09/16 showing EF 50-55%, severe TR, pulmonary HTN - Restart Home Lasix - recheck BNP HTN - Home meds Pulmonary HTN - Maintain O2 sats, PRN O2 - consider consult to palliative HCV - Monitor LFT Skin lesion - Likely has BCC on back, possible removal/biopsy DVT ppx - SCD GI PPX: Protonix gtt Code: full Disposition/LOS: Admitted for encephalopathy and cholecystitis, LOS > 48 hrs FMR H&P: Upper Level - Plan Date/Time: 02/22/201822 Capo Benoit DO, have evaluated this patient and agree with findings/plan as outlined by international relations teacher resident. Pertinent changes/additions are listed here. This is a 54 yo male with a pmh of HFpEF, Hepatitis C, venous stasis, hx of C diff who presents to the ED via EMS with hypoglycemia of 16. He was found unresponsive. He received D10 and this improved his glucose level. His last check in the ER was 116 after no interventions. He does not appear to take any oral hyperglycemic medicationsHe states that he has been having an ongoing cough for the last 2 weeks. In addition, he has been having pain in his lower left groin and states he has been having issues with a hernia. He states that he has to add pressure to his groin when he coughs to prevent it from bulging more. He denies hematemesis but reports possibly having bloody stools. Objective: BP: 128/89, HR 107, RR 17, Temp 97.5, SpO2 92Ra, Wt 91kg General: mild distress, lethargic HEENT: AT/NC Cardio: RRR, no murmur Respiratory: CTAB, no rales or rhonchi Extremities: Diminished pulses in BLE, chronic skin changes consistent with venous stasis A/P Acute metabolic encephalopathy 2/2 Hypoglycemia vs other etiology -Admit to tele inpatient -No obvious cause at this point -Q2hr glucose checks -Pt received 1L NS in ER -Continue D5 LR at 100 x1L -Pending AM TSH/cortisol level Hepatitis C -Ammonia level 34 -Cholelithiasis with signs of cholecystitis -Pending ultrasound to further investigate gall stones -Meld-Na score of 27, although no evidence of cirrhosis on imaging -Minimal free fluid in abdomen, Starting cefepime and metronidazole for prophylaxis -Consider GI consult in AM Hepatic Steatosis LAURIE -Will obtain FeNa, possibly due to hepatic congestion vs dehydration Peptic ulcer disease -Protonix and carafate -Hgb stable and MCV not suggestive of chronic bleed Coagulopathy likely 2/2 liver disease -INR 2.0 -Will monitor for bleeding Venous stasis Pulmonary HTN -Wears 2L O2 at home appears at baseline, ABG shows adequate pO2 HFpEF -Echo on 08/2019 EF 50-55%, Grade 1/3 diastolic dysfunction -Will limit IV fluids -CTA shows RV enlargement, no PEs hx of C diff -Denies current diarrhea Inguinal hernia -Outpt Gen Surgery consultation -CT abdomen/pelvis makes no mention of hernia Hyperbilirubinemia -Likely 2/2 hepatic steatosis -Above baseline IV methamphetamine abuse -UDS, encourage cessation Code: Full Prophylaxis: SCDs Family: None at bedside Fluids: D5 LR 100ml/hr Diet: Clear liquids Disposition: DC in 2-3 days PCP: Dr. Keita Addendum - Attending - Attending Attestation Date/Time: 02/23/201940 I personally evaluated the patient and discussed the management with Dr. Vinson and Dr. Correa I agree with the History, Examination, Assessment and Plan documented above with any addition or exceptions noted below. 54 yo male with multiple medical conditions and poor social situation presents to ER by EMS after being found down with severe hypoglycemia. - Metabolic encephalopathy due to hypoglycemia and methamphetamine use. Has responded to IV glucose. Continue IV drip with D5LR. UDS pos. Patient reports frequent use. Patient with liver dz and likely low glucagon reserve. Continue q 2 hour CHO checks. - Hep C with liver failure. Untreated. Unsure stage of cirrhosis. Ammonia WNL. CKD present along with pEFHF. At this time does not appear to have hepato-renal syndrome but monitor. Currently on IVFs. Trend labs. Continue home meds. Notify GI as needed. - Cholecystitis: Gen surg in AM. Start antibx. - PUD: Start PPI. Add carafate as needed to help pain control. Avoid NSAIDs. GI in AM. Adjust home meds as needed. Monitor closely throughout the night. Candida
[2020-02-22 18:27] LABS: Acetaminophen Less than 6.0 mcg/mL (10.0-30.0); Alcohol Less than 10 mg/dL (Less than 10); Salicylate Less than 8.0 mg/dL (15.0-30.0)
[2020-02-22 19:37] LABS: Bilirubin Negative (Negative); Blood, Urine Negative (Negative); Clarity Clear (Clear); Glucose, Urine (Dipstick) Normal (Negative); Ketone, Urine Negative (Negative); Leukocyte Negative Leu/uL (Negative); Nitrite Negative (Negative); Protein, Urine (Dipstick) Negative (Neg-Trace); Specific Gravity, Urine 1.043 (1.002-1.036); pH, Urine 5.5 (5.0-9.0)
[2020-02-22 19:46] LABS: Medtox Reader # READER 4
[2020-02-22 19:47] LABS: Amphetamine Detected (NotDetected); Barbiturates Screen Not Detected (NotDetected); Benzodiazepine Screen Not Detected (NotDetected); Cocaine Metabolite Screen Not Detected (NotDetected); Medtox Control Line Valid? VALID (VALID); Methadone Not Detected (NotDetected); Methamphetamine Detected (NotDetected); Opiate Screen Not Detected (NotDetected); Oxycodone Screen Not Detected (NotDetected); Phencyclidine (PCP) Not Detected (NotDetected); THC/Cannabinoid Screen Not Detected (NotDetected); Tricyclic Screen Not Detected (NotDetected)
[2020-02-22] MEDS ORDERED: Acetaminophen 325 MG TAB PO PRN (21:12)
[2020-02-22] MEDS ORDERED: Ondansetron PF 4 MG/2 ML Vial IVP PRN ×2 (21:12→21:42)
[2020-02-22] MEDS ORDERED: Ondansetron ODT 4 MG TAB SL PRN (21:12)
[2020-02-22] MEDS ORDERED: Acetaminophen 650 MG Suppository PR PRN (21:42)
[2020-02-22] MEDS ORDERED: Dextrose 5% in Water 1,000 ML IV PRN (21:42)
[2020-02-22] MEDS ORDERED: Ondansetron ODT 4 MG TAB PO PRN (21:42)
[2020-02-22] MEDS ORDERED: Dextrose 50% Abboject 50 ML SYRINGE SLOW IVP PRN (21:42)
[2020-02-22] MEDS ORDERED: Calcium Carbonate 500 MG ChewTAB PO PRN (21:42)
[2020-02-22 22:31] VITALS: BMI 25.9
[2020-02-22] MEDS: Dextrose 5%-Lactated Ringers 1,000 ML IV SCH (22:43)
--- NOTE | 2020-02-22 23:20 | ULT ---
EXAM: US Gallbladder RUQ CLINICAL HISTORY: Hyper bilirubinemia. COMPARISON: 09/10/2019 Correlation: Abdomen pelvis CT 02/22/2020 FINDINGS: Pancreas: Obscured by bowel gas Liver:Increased echogenicity due to hepatic steatosis. Right hepatic lobe: 16.1 cm Gallbladder: Contracted gallbladder. Sonographic evidence of cholelithiasis. Gallbladder wall is thic kened measuring 0.42 cm. Paredes's sign:Positive Portal Vein: Patent. Bidirectional flow Bile ducts: 0.4 cm common bile duct diameter Right kidney: No hydronephrosis. Right kidney measures 10.2 cm in length. Incidentals: Small amount of perihepatic fluid. Right pleural effusion. IMPRESSION: 1. Sonographic evidence of cholelithiasis and cholecystitis.
[2020-02-23] MEDS: Sucralfate 1 GM/10 ML UDCUP PO SCH ×3 (00:04→12:00)
[2020-02-23 00:35] LABS: CRP (Inflammatory) 0.77 mg/dL (= or < 0.5)
[2020-02-23 00:37] LABS: Troponin I 0.042 ng/mL (< 0.028)
[2020-02-23] MEDS ORDERED: Cefepime 2 GM in Sodium Chloride 0.9% 100 ML IVPB SCH (00:45)
[2020-02-23] MEDS: metroNIDAZOLE 500 MG in Premix Bag 1 BAG IVPB SCH ×2 (01:30→08:37)
[2020-02-23] MEDS: Dextrose 5%-Lactated Ringers 1,000 ML IV SCH (01:35)
[2020-02-23 03:39] LABS: Creatinine, Urine 91.12 mg/dL (63-166); Sodium, Urine Less than 20 mmol/L (Not Available)
[2020-02-23] MEDS: Pantoprazole 80 MG in Sodium Chloride 0.9% 100 ML IVPB SCH ×3 (03:48→23:25)
[2020-02-23 04:18] LABS: #Basophils 0.1 thou/uL (0.0-0.2); #Eosinphils 0.9 thou/uL (0.0-0.7); #Lymphocytes 1.3 thou/uL (1.20-3.40); #Monocytes 0.8 thou/uL (0.11-0.59); #Neutrophils 3.4 thou/uL (1.40-6.50); %Basophils 1.4 % (0.0-1.0); %Eosinophils 13.9 % (0.0-10.0); %Lymphocytes 20.6 % (21.0-51.0); %Neutrophils 52.2 % (42.0-75.0); Mean Corpuscular HGB CONC 29.7 g/dL (32.0-36.0); Mean Corpuscular Hemoglobin 26.9 pg (27.0-31.0); Mean Corpuscular Volume 90.4 fL (78.0-98.0); Mean Platelet Volume 11.4 fL (7.4-10.4); Platelet Count 86 thou/uL (130-400); RBC Distribution Width 20.2 % (11.5-14.5); Red Blood Cell (RBC) Count 5.22 mill/uL (4.70-6.10); White Blood Cell (WBC) Count 6.4 thou/uL (4.8-10.8)
[2020-02-23 04:43] LABS: ALT (SGPT) 28 U/L (8-55); AST (SGOT) 73 U/L (5-34); Albumin 3.5 g/dL (3.5-5.0); Alkaline Phosphatase 71 U/L (40-110); Anion Gap 18 mmol/L (10-20); BUN (Urea Nitrogen) 20 mg/dL (8.4-25.7); Bilirubin, Total 6.6 mg/dL (0.2-1.2); Calc. Creatinine Clearance 82 mL/min (70-130); Calcium 9.2 mg/dL (7.8-10.44); Carbon Dioxide 19 mmol/L (22-29); Chloride 103 mmol/L (98-107); Estimated GFR-MDRD 57; Globulin 3.3 g/dL (2.4-3.5); Glucose 91 mg/dL (70-105); Potassium 3.5 mmol/L (3.5-5.1); Protein, Total 6.8 g/dL (6.0-8.3); Sodium 136 mmol/L (136-145)
[2020-02-23 04:45] LABS: Troponin I 0.052 ng/mL (< 0.028)
--- NOTE | 2020-02-23 06:20 | PDOC.FM ---
- Subjective Subjective: Patient is resting comfortably in bed. He complains of diffuse abdominal pain and is wanting to eat. He also noticed a diffuse rash on his abdomen and groin that started last night. Denies CP, SOB, CRUZ, changes in vision. - Objective MAR Reviewed: Yes Vital Signs & Weight: Vital Signs (12 hours) Temp Pulse Resp BP Pulse Ox 02/23/20 03:46 98.2 F 119 H 18 115/77 93 L 02/23/20 00:00 112 H 20 121/81 94 L 02/22/20 21:00 97.9 F 109 H 20 131/81 93 L Weight Weight 91.626 kg Result Diagrams: 02/23/20 03:50 02/23/20 03:50 Phys Exam - Physical Examination Constitutional: NAD HEENT: sclera anicteric Neck: full ROM Respiratory: no wheezing, clear to auscultation bilateral Cardiovascular: RRR, no significant murmur Gastrointestinal: soft, no distention, positive bowel sounds diffusely tender to palpation. Positive alvarado's sign Musculoskeletal: no edema Neurological: moves all 4 limbs Psychiatric: A&O x 3 Skin: normal turgor Deviation from normal: jaundiced. Midline skin lesion on his upper back aprx [id number]. -: diffuse macular rash on abdomen and groin Dx/Plan - Plan Plan: Encephalopathy: -Likely 2/2 hypoglycemia vs substance abuse - CT head negative - monitor BG - monitor for withdrawal sx - COVID test pending - AM serum cortisol - TSH, 4.3357 - UDS positive Cholecystitis - CT abdomen with concern, f/u US showing cholelithiasis and cholecystitis - Surgery consulted, appreciate the recs Possible Liver Cirrhosis - extensive history of drug use, Hx of Hep C - AST 73, ALT 28, Platelets 86, prolonged PT/PTT, hypoglycemia - prophylaxis against SBP: cefepime, flagyl -GI consulted, appreciate the recs Elevated Trops -denies CP - .052, will trend HF - Echo 09/16 showing EF 50-55%, severe TR, pulmonary HTN - Restart Home Lasix - recheck BNP HTN - Home meds Pulmonary HTN - Maintain O2 sats, PRN O2 - consider consult to palliative HCV - Monitor LFT -GI consulted, appreciate the recs Skin lesion - Likely has BCC on back, possible removal/biopsy Substance Use -IV meth last use 2 weeks ago - UDS + for methamphetamines and amphetamines LAURIE -Cr on admission 1.54 -today Cr is 1.3 - FeNa .2%, pre renal - on MIVF -continue to monitor IVF: 125mL/hr LR DVT ppx: SCD GI PPX: Protonix gtt Code: full Disposition/LOS: Admitted for encephalopathy and cholecystitis, LOS > 48 hrs
[2020-02-23 06:55] LABS: Troponin I 0.049 ng/mL (< 0.028)
[2020-02-23 06:56] LABS: HIV (1/2) Antibody/Antigen Non-Reactive (NonReactive); HIV 1/2 INDEX 0.54 S/CO (<1.00)
[2020-02-23 07:54] LABS: Syphilis Antibody Nonreactive (Nonreactive); Syphilis Antibody Index 0.07 S/CO (<1.00 Non-Reactive)
[2020-02-23 07:56] LABS: Hep B Surf Ag Non-Reactive S/CO (NonReactive)
[2020-02-23 07:57] LABS: Hep A IgM AB Non-Reactive (NonReactive); Hep A IgM S/CO 0.25 S/CO (0-0.79)
[2020-02-23 08:30] LABS: HBCM Index 0.18 S/CO (0-0.79); Hepatitis B Core IgM Abs Non-Reactive (NonReactive)
[2020-02-23] MEDS: Lactated Ringer's 1,000 ML IV SCH ×3 (08:35→21:41)
[2020-02-23] MEDS: Furosemide 20 MG TAB PO SCH ×2 (08:35→23:39)
[2020-02-23] MEDS: Lisinopril 10 MG TAB PO SCH ×2 (08:36→23:39)
[2020-02-23] MEDS: Gabapentin 100 MG CAP PO SCH ×3 (08:36→21:40)
[2020-02-23] MEDS: Tamsulosin HCl 0.4 MG CAP PO SCH (08:36)
[2020-02-23] MEDS ORDERED: Dextrose 50% Abboject 50 ML SYRINGE SLOW IVP PRN (08:57)
[2020-02-23 11:56] LABS: SARS-CoV-2 MS2 Positive; SARS-CoV-2 N Gene Negative; SARS-CoV-2 S Gene Negative; SARS-CoV-2 by NAA Not Detected (NotDetected); SARS-CoV-2 orf1ab Negative
[2020-02-23] MEDS ORDERED: Cefepime 1 GM in Sodium Chloride 0.9% 100 ML IVPB SCH (13:00)
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
--- NOTE | 2020-02-23 14:58 | PRG ---
DATE OF SERVICE: 02/23/2020 Mr. Carolina is a 54-year-old man, admitted yesterday with abdominal pain as well as being found unresponsive at home. At that time, a blood glucose stick was noted to be 16. He was given D10 with levels of 104 afterwards. He was subsequently admitted for further evaluation of his several problems including the abdominal pain. A gallbladder ultrasound revealed a positive sonographic Paredes sign with gallstones and there is a suspicion for cholecystitis. Surgery was consulted and felt that his pain was due to hepatomegaly secondary to cor pulmonale and did not believe that surgery was indicated. They did, however, order a HIDA scan, though in the past, his HIDA scans have not shown cholecystitis. In the event, this morning, he looks and feels better, although slightly sleepy. Mr. Carolina also has a history of untreated hepatitis C. We have recommended that after his acute problems have been dealt with that, he consider treatment for hepatitis C and he appears to be in agreement. Looking at his labs, his CBC shows a white count of 7600, his hemoglobin was 14.3, his hematocrit was 46.1 with an MCV of 88. An arterial blood gas shows a pH of 7.40, a pCO2 of 28, a pO2 of 110. Chemistries; sodium was 136, potassium 3.5, chloride 103, bicarb 19, BUN 20, creatinine 1.3. His total bilirubin was 6.6 with an AST of 73. His BNP was 1362. Troponin was indeterminate at 0.052. As stated, this morning, he looks and feels better. We will continue to evaluate and treat as well as monitor him closely for any further episodes of hypoglycemia. Job ID: [id number]
[2020-02-23] MEDS ORDERED: Lactated Ringer's 1,000 ML IV SCH (16:00)
--- NOTE | 2020-02-23 16:28 | NM ---
Radionucleotide hepatobiliary scan HISTORY: Cholecystitis. FINDINGS: Early images show physiologic uptake of radiotracer throughout the hepatic parenchyma. Gall bladder first imaged at 29 minutes. At 60 minutes, uptake was not reliably demonstrated in the small bowel. Image at 2.5 hours shows radiotracer in the small bowel. IMPRESSION : No evidence of biliary obstruction.
[2020-02-23 19:58] LABS: Hemoglobin 13.6 g/dL (14.0-18.0); Platelet Count 89 thou/uL (130-400)
[2020-02-23] MEDS ORDERED: Lactated Ringer's 500 ML IV SCH (20:45)
[2020-02-23] MEDS: Metoprolol Tartrate 25 MG TAB PO SCH (21:40)
[2020-02-23] MEDS: Atorvastatin Calcium 40 MG TAB PO SCH (21:40)
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
[2020-02-24] MEDS: Lactated Ringer's 1,000 ML IV SCH (01:39)
[2020-02-24] MEDS ORDERED: Furosemide 20 MG TAB PO SCH (06:00)
--- NOTE | 2020-02-24 06:33 | PDOC.FM ---
- Subjective Subjective: Patient states he feels crummy and wants his Lasix. He states he feels really puffy in his abdomen/back. Denies CP, SOB, abdominal pain, CRUZ. Tolerating PO no difficulty. - Objective MAR Reviewed: Yes Vital Signs & Weight: Vital Signs (12 hours) Temp Pulse Resp BP BP BP Pulse Ox 02/24/20 04:00 97.9 F 116 H 24 H 122/79 92 L 02/24/20 00:00 98.9 F 118 H 24 H 113/58 L 92 L 02/23/20 19:31 92 L 02/23/20 19:15 98.3 F 117 H 24 H 78/48 L 100/64 78/52 L 92 L Weight Weight 96.162 kg I&O: 02/22/20 02/23/20 02/24/20 06:59 06:59 06:59 Intake Total 2200 Output Total 300 Balance 1900 Result Diagrams: 02/24/20 10:06 02/24/20 10:06 Phys Exam - Physical Examination Constitutional: NAD HEENT: sclera anicteric Neck: full ROM Respiratory: no wheezing, clear to auscultation bilateral Cardiovascular: RRR, no significant murmur Gastrointestinal: non-tender, positive bowel sounds mildly distended Musculoskeletal: pulses present 2+ pitting edema. Venous stasis present. Neurological: moves all 4 limbs Psychiatric: normal affect, A&O x 3 Skin: normal turgor Deviation from normal: slightly jaundiced. Dx/Plan - Plan Plan: Encephalopathy: -Likely 2/2 hypoglycemia vs substance abuse - CT head negative - monitor BG - monitor for withdrawal sx - COVID test neg - TSH, 4.3357 - UDS positive meth Cholelithiasis - CT abdomen with concern, f/u US showing cholelithiasis and cholecystitis - Surgery consulted, appreciate the recs - HIDA scan negative, non operable. Likely falsely positive alvarado's sign due to painfully tender congested liver Possible Liver Cirrhosis - extensive history of drug use, Hx of Hep C - AST 73, ALT 28, Platelets 86, prolonged PT/PTT, hypoglycemia - prophylaxis against SBP: cefepime, flagyl discontinued -GI consulted, appreciate the recs. Plan to follow up outpatient Elevated Trops -denies CP - trended down Acute on chronic HF exacerbation - Echo 09/16 showing EF 50-55%, severe TR, pulmonary HTN - IV Lasix 40mg mEq PRN - home Lasix - recheck BNP HTN - Home meds Pulmonary HTN - Maintain O2 sats, PRN O2 - consider consult to palliative HCV - Monitor LFT -GI consulted, appreciate the recs. Plan to follow up outpatient. Skin lesion - Likely has BCC on back, possible removal/biopsy Substance Use -IV meth last use 2 weeks ago - UDS + for methamphetamines and amphetamines LAURIE, improving -Cr on admission 1.54 - FeNa .2%, pre renal -continue to monitor IVF: KVO DVT ppx: SCD GI PPX: Protonix gtt Code: full Disposition/LOS: inpatient, >48 hours
[2020-02-24] MEDS ORDERED: Furosemide 40 MG/4 ML VIAL SLOW IVP SCH ×2 (07:30→15:15)
[2020-02-24] MEDS: Gabapentin 100 MG CAP PO SCH (08:54)
[2020-02-24] MEDS: Tamsulosin HCl 0.4 MG CAP PO SCH (08:55)
[2020-02-24] MEDS ORDERED: Lisinopril 10 MG TAB PO SCH (09:00)
[2020-02-24] MEDS ORDERED: Ibuprofen 600 MG TAB PO PRN (09:00)
[2020-02-24] MEDS: Metoprolol Tartrate 25 MG TAB PO SCH (09:13)
[2020-02-24 10:27] LABS: #Basophils 0.1 thou/uL (0.0-0.2); #Eosinphils 1.8 thou/uL (0.0-0.7); #Lymphocytes 1.4 thou/uL (1.20-3.40); #Monocytes 0.7 thou/uL (0.11-0.59); #Neutrophils 4.4 thou/uL (1.40-6.50); %Eosinophils 21.9 % (0.0-10.0); %Lymphocytes 17.1 % (21.0-51.0); %Monocytes 8.4 % (0.0-10.0); %Neutrophils 51.7 % (42.0-75.0); Hemoglobin 14.1 g/dL (14.0-18.0); Mean Corpuscular HGB CONC 31.6 g/dL (32.0-36.0); Mean Corpuscular Hemoglobin 28.1 pg (27.0-31.0); Mean Corpuscular Volume 88.8 fL (78.0-98.0); Mean Platelet Volume 10.6 fL (7.4-10.4); Platelet Count 103 thou/uL (130-400); RBC Distribution Width 20.3 % (11.5-14.5); Red Blood Cell (RBC) Count 5.02 mill/uL (4.70-6.10); White Blood Cell (WBC) Count 8.4 thou/uL (4.8-10.8)
[2020-02-24 10:42] LABS: ALT (SGPT) 29 U/L (8-55); AST (SGOT) 73 U/L (5-34); Albumin 3.3 g/dL (3.5-5.0); Alkaline Phosphatase 73 U/L (40-110); Anion Gap 14 mmol/L (10-20); BUN (Urea Nitrogen) 18 mg/dL (8.4-25.7); Bilirubin, Total 6.1 mg/dL (0.2-1.2); Calc. Creatinine Clearance 99 mL/min (70-130); Calcium 8.4 mg/dL (7.8-10.44); Carbon Dioxide 20 mmol/L (22-29); Chloride 103 mmol/L (98-107); Estimated GFR-MDRD 67; Globulin 3.2 g/dL (2.4-3.5); Glucose 113 mg/dL (70-105); Potassium 3.4 mmol/L (3.5-5.1); Protein, Total 6.5 g/dL (6.0-8.3); Sodium 134 mmol/L (136-145)
[2020-02-24] MEDS: Pantoprazole 80 MG in Sodium Chloride 0.9% 100 ML IVPB SCH ×2 (11:02→22:03)
[2020-02-24] MEDS ORDERED: Potassium Chloride 20 MEQ TAB PO SCH (11:45)
--- NOTE | 2020-02-24 13:00 | PRG ---
DATE OF SERVICE: 02/24/2020 Mr. Carolina looks and feels better this morning. He has been receiving quite a bit of fluids over the last day due to his condition. We gave him Lasix as he demonstrated some mild fluid overload and he already feels much improved. He was seen in consultation by the Surgery Service, who did not feel the patient had acute cholecystitis. They felt that his right upper quadrant discomfort was due to hepatomegaly secondary to cor pulmonale. Also in the past, he has had several negative HIDA scans. He is therefore ready for discharge. We emphasized again to him to please follow up with GI for treatment of his hepatitis C. Job ID: [id number]
[2020-02-24] MEDS: Gabapentin 300 MG CAP PO SCH ×2 (15:07→21:14)
[2020-02-24] MEDS: guaiFENesin ER 600 MG TAB PO SCH (21:13)
[2020-02-24] MEDS: Atorvastatin Calcium 40 MG TAB PO SCH (21:13)
[2020-02-25 05:26] LABS: ALT (SGPT) 28 U/L (8-55); AST (SGOT) 65 U/L (5-34); Albumin 3.1 g/dL (3.5-5.0); Alkaline Phosphatase 85 U/L (40-110); Anion Gap 15 mmol/L (10-20); BUN (Urea Nitrogen) 19 mg/dL (8.4-25.7); Bilirubin, Total 4.6 mg/dL (0.2-1.2); Calc. Creatinine Clearance 83 mL/min (70-130); Calcium 8.3 mg/dL (7.8-10.44); Carbon Dioxide 20 mmol/L (22-29); Chloride 103 mmol/L (98-107); Estimated GFR-MDRD 54; Glucose 137 mg/dL (70-105); Potassium 3.3 mmol/L (3.5-5.1); Protein, Total 6.1 g/dL (6.0-8.3); Sodium 135 mmol/L (136-145)
[2020-02-25 06:01] LABS: Anisocytosis SLIGHT = 6-15 cells (100X) (0-5/hpf); Band 1 % (5-11); Eosinophils 24 % (0-10); Hemoglobin 13.6 g/dL (14.0-18.0); Large Platelets SLIGHT; Lymphocytes 13 % (21-51); MDiff Complete? YES; Mean Corpuscular HGB CONC 30.9 g/dL (32.0-36.0); Mean Corpuscular Hemoglobin 27.7 pg (27.0-31.0); Mean Corpuscular Volume 89.8 fL (78.0-98.0); Mean Platelet Volume 10.3 fL (7.4-10.4); Monocytes 12 % (0-10); Neutrophil 48 % (42-75); Platelet Count 89 thou/uL (130-400); Platelet Morphology Comment Appears Decreased; RBC Distribution Width 20.2 % (11.5-14.5); White Blood Cell (WBC) Count 7.7 thou/uL (4.8-10.8)
--- NOTE | 2020-02-25 06:11 | PDOC.FM ---
- Subjective Subjective: Patient resting comfortably in bed this AM. Denies any new complaints or concerns. Still feels like he has too much fluid on him, as his legs are swollen. Able to lay down flat, no SOB, CP, CRUZ, abdominal pain. - Objective MAR Reviewed: Yes Vital Signs & Weight: Vital Signs (12 hours) Temp Pulse Resp BP BP Pulse Ox 02/25/20 04:00 97.9 F 113 H 16 101/66 94 L 02/24/20 19:08 98.6 F 114 H 16 126/78 96 Weight Weight 97.069 kg I&O: 02/23/20 02/24/20 02/25/20 06:59 06:59 06:59 Intake Total 2200 750 Output Total 300 2025 Balance 1900 -1275 Result Diagrams: 02/25/20 04:14 02/25/20 04:14 Phys Exam - Physical Examination Constitutional: NAD HEENT: moist MMs, sclera anicteric Neck: supple, full ROM Respiratory: no wheezing, clear to auscultation bilateral Cardiovascular: RRR, no significant murmur Gastrointestinal: soft, non-tender, positive bowel sounds Musculoskeletal: pulses present 2+ pitting edema in bilateral lower extremities Neurological: moves all 4 limbs Psychiatric: normal affect, A&O x 3 Skin: normal turgor Deviation from normal: venous stasis dermatitis Dx/Plan - Plan Plan: Encephalopathy, resolved -Likely 2/2 hypoglycemia vs substance abuse - CT head negative - monitor BG - monitor for withdrawal sx - COVID test neg - TSH, 4.3357 - UDS positive meth Acute on chronic HF exacerbation - Echo 09/16 showing EF 50-55%, severe TR, pulmonary HTN - IV Lasix 40mg mEq PRN - on home Lasix - recheck BNP, trending down Cholelithiasis - CT abdomen with concern, f/u US showing cholelithiasis and cholecystitis - Surgery consulted, appreciate the recs - HIDA scan negative, non operable. Likely falsely positive alvarado's sign due to painfully tender congested liver Possible Liver Cirrhosis - extensive history of drug use, Hx of Hep C - on admission, AST 73, ALT 28, Platelets 86, prolonged PT/PTT, hypoglycemia - prophylaxis against SBP: cefepime, flagyl discontinued -GI consulted, appreciate the recs. Plan to follow up outpatient Elevated Trops -denies CP - trended down HTN - Home meds Pulmonary HTN - Maintain O2 sats, PRN O2 - consider consult to palliative HCV - Monitor LFT -GI consulted, appreciate the recs. Plan to follow up outpatient. Skin lesion - Likely has BCC on back, possible removal/biopsy Substance Use -IV meth last use 2 weeks ago - UDS + for methamphetamines and amphetamines LAURIE -Cr on admission 1.54 - FeNa .2%, pre renal -continue to monitor IVF: KVO DVT ppx: SCD GI PPX: Protonix gtt Code: full Disposition/LOS: inpatient, >48 hours
[2020-02-25 06:41] LABS: Magnesium 1.6 mg/dL (1.6-2.6); Phosphorus 2.2 mg/dL (2.3-4.7)
[2020-02-25] MEDS ORDERED: Potassium Chloride 20 MEQ TAB PO SCH (08:15)
[2020-02-25] MEDS ORDERED: Furosemide 40 MG/4 ML VIAL SLOW IVP SCH ×2 (08:15→14:30)
[2020-02-25] MEDS ORDERED: Magnesium 2 GM/50 ML 2 GM in Premix Bag 1 BAG IVPB SCH (08:15)
[2020-02-25] MEDS: guaiFENesin ER 600 MG TAB PO SCH ×2 (08:25→20:41)
[2020-02-25] MEDS: Tamsulosin HCl 0.4 MG CAP PO SCH (08:25)
[2020-02-25] MEDS: Gabapentin 300 MG CAP PO SCH ×3 (08:25→20:41)
--- NOTE | 2020-02-25 09:02 | PRG ---
DATE OF SERVICE: 02/25/2020 SUBJECTIVE: Mr. Carolina underwent a HIDA scan that was normal, had normal visualization of the gallbladder GI tract. There is no evidence of biliary obstruction. His gallstones are asymptomatic and his positive sonographic Paredes sign reported on his gallbladder ultrasound is a false-positive due to hepatic congestion from congestive heart failure. He has had this repeatedly. The patient reports some discomfort in his left groin. CAT scan did not report an inguinal hernia. The patient reports some discomfort here. On exam, he has some fullness in his left groin and the fullness in his inguinal canal that may be suggestive of left inguinal hernia. He is examined standing. There is no acute intraabdominal pathology that demands immediate attention. He may have a left inguinal hernia. This was not seen on CAT scan; however. If surgical intervention for his inguinal hernia is considered, then he would need preoperative cardiac clearance and evaluation. I would recommend Cardiology consult this hospitalization. Dr. Maurice is covering this weekend. I will see him as needed. The patient can follow up in my office if inguinal hernia repair is necessary in the future. I will see him as needed this hospitalization. Job ID: [id number]
[2020-02-25] MEDS: Pantoprazole 80 MG, Admixture Fee 1 EACH in Sodium Chloride 0.9% 100 ML IVPB SCH ×2 (10:04→22:07)
[2020-02-25 13:14] LABS: Hep C PCR-Quant 2140000 IU/mL (.)
[2020-02-25] MEDS: Atorvastatin Calcium 40 MG TAB PO SCH (20:41)
[2020-02-26 04:31] LABS: #Lymphocytes 1.2 thou/uL (1.20-3.40); #Monocytes 0.9 thou/uL (0.11-0.59); #Neutrophils 4.9 thou/uL (1.40-6.50); %Basophils 0.4 % (0.0-1.0); %Lymphocytes 13.1 % (21.0-51.0); %Monocytes 9.9 % (0.0-10.0); %Neutrophils 54.6 % (42.0-75.0); Hemoglobin 13.5 g/dL (14.0-18.0); Mean Corpuscular HGB CONC 30.9 g/dL (32.0-36.0); Mean Corpuscular Hemoglobin 27.3 pg (27.0-31.0); Mean Corpuscular Volume 88.5 fL (78.0-98.0); Mean Platelet Volume 11.2 fL (7.4-10.4); Platelet Count 82 thou/uL (130-400); RBC Distribution Width 20.3 % (11.5-14.5); Red Blood Cell (RBC) Count 4.93 mill/uL (4.70-6.10); White Blood Cell (WBC) Count 8.9 thou/uL (4.8-10.8)
[2020-02-26 04:47] LABS: ALT (SGPT) 31 U/L (8-55); AST (SGOT) 64 U/L (5-34); Albumin 3.3 g/dL (3.5-5.0); Alkaline Phosphatase 87 U/L (40-110); Anion Gap 13 mmol/L (10-20); BUN (Urea Nitrogen) 18 mg/dL (8.4-25.7); Bilirubin, Total 4.4 mg/dL (0.2-1.2); Calc. Creatinine Clearance 87 mL/min (70-130); Calcium 8.4 mg/dL (7.8-10.44); Carbon Dioxide 23 mmol/L (22-29); Chloride 101 mmol/L (98-107); Estimated GFR-MDRD 57; Globulin 3.3 g/dL (2.4-3.5); Glucose 106 mg/dL (70-105); Potassium 3.4 mmol/L (3.5-5.1); Protein, Total 6.6 g/dL (6.0-8.3); Sodium 134 mmol/L (136-145)
--- NOTE | 2020-02-26 05:56 | PRG ---
DATE OF SERVICE: 02/25/2020 ADDENDUM: This is an addendum to the note of Dr. Carol Chavez. Mr. Carolina is in good spirits this morning, in no distress. His edema is gradually resolving. Interestingly, although Mr. Carolina has strong evidence of pulmonary hypertension with an echo with pulmonary artery pressure of 65, as well as peripheral edema suggestive of cor pulmonale, he has never smoked. He has never worked in heavy industry around fumes, dust, etc. He also has a family history of COPD, suggesting the possibility of alpha-1 antitrypsin deficiency for which we will screen him. He also snores heavily at night and KRUNAL is a consideration. He has numerous other problems including hepatitis C. He is nearing time for discharge and these other diagnostic possibilities will be pursued as an outpatient. Job ID: [id number]
--- NOTE | 2020-02-26 06:14 | PDOC.FM ---
- Subjective Subjective: Patient states he is doing ok today. Would like to go home to get some rest. Endorses SOB when getting up and walking. Still "swollen", but improved. Denies CP, CRUZ, vision changes, abdominal pain. Tolerating PO without difficulty. - Objective MAR Reviewed: Yes Vital Signs & Weight: Vital Signs (12 hours) Temp Pulse Resp BP BP Pulse Ox 02/26/20 05:54 100 02/26/20 04:45 97.4 F L 110 H 20 112/78 100 02/25/20 19:50 98.5 F 73 20 122/59 L 94 L Weight Weight 97.069 kg I&O: 02/24/20 02/25/20 02/26/20 06:59 06:59 06:59 Intake Total 2200 1470 668 Output Total 300 2650 2300 Balance 1900 -7990 1632 Result Diagrams: 02/26/20 04:00 02/26/20 04:00 Phys Exam - Physical Examination Constitutional: NAD HEENT: moist MMs, sclera anicteric Neck: supple, full ROM Respiratory: no wheezing, clear to auscultation bilateral Cardiovascular: RRR, no significant murmur Gastrointestinal: soft, non-tender, positive bowel sounds Musculoskeletal: pulses present 2+ pitting edema up to knees, 1+ pitting edema to mid thigh Neurological: moves all 4 limbs Psychiatric: normal affect, A&O x 3 Skin: no rash Dx/Plan - Plan Plan: Acute on chronic HF exacerbation - Echo in 09/16 showing EF 50-55%, severe TR, pulmonary HTN - IV Lasix - on home Lasix 10mg BID, patient states he occasionally doubles or triples his dose and takes at one time - BNP elevated on admission, improved on recheck - consider cardiology consult Encephalopathy, resolved -Likely 2/2 hypoglycemia vs substance abuse - CT head negative - monitor BG - monitor for withdrawal sx - COVID test neg - TSH, 4.3357 - UDS positive meth Cholelithiasis - CT abdomen with concern, f/u US showing cholelithiasis and cholecystitis - Surgery consulted, appreciate the recs - HIDA scan negative, non operable. Likely falsely positive alvarado's sign due to painfully tender congested liver Possible Liver Cirrhosis - extensive history of drug use, Hx of Hep C - on admission, AST 73, ALT 28, Platelets 86, prolonged PT/PTT, hypoglycemia - prophylaxis against SBP: cefepime, flagyl discontinued -GI consulted, appreciate the recs. Plan to follow up outpatient - Hep C RNA pending Possible Inguinal Hernia -seen by surgeryRoger, appreciate the recs -CT scan didn't show evidence of inguinal hernia -outpatient management Elevated Trops -denies CP - trended down HTN - Home meds Pulmonary HTN - Maintain O2 sats, PRN O2 - consider consult to palliative HCV - Monitor LFT -GI consulted, appreciate the recs. Plan to follow up outpatient. 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 pending. IVF: KVO DVT ppx: SCD GI PPX: Protonix gtt discontinued Code: full Disposition/LOS: inpatient, >48 hours Addendum - Attending - Attending Attestation Date/Time: 02/26/20 8475 I personally evaluated the patient and discussed the management with Dr. Chavez. I agree with the History, Examination, Assessment and Plan documented above with any addition or exceptions noted below. The patient has lower extremity edema. Will continue IV lasix but increase to 80 mg. Shortly after rounding on pt, he began having ST changes on the EKG. Repeat troponin was indeterminate but similar to previous trops. Dr. Chavez will speak with cardiology. Pt notes he is feeling fine and wants to go home but more diuresis is needed at this time.
[2020-02-26] MEDS: Tamsulosin HCl 0.4 MG CAP PO SCH (08:07)
[2020-02-26] MEDS: guaiFENesin ER 600 MG TAB PO SCH ×2 (08:07→21:38)
[2020-02-26] MEDS: Gabapentin 300 MG CAP PO SCH ×3 (08:07→21:39)
[2020-02-26] MEDS ORDERED: Furosemide 100 MG/10 ML VIAL SLOW IVP SCH (09:00)
[2020-02-26] MEDS ORDERED: Potassium Chloride 20 MEQ TAB PO SCH (09:00)
[2020-02-26] MEDS ORDERED: Furosemide 40 MG/4 ML VIAL SLOW IVP SCH (09:00)
[2020-02-26 10:06] LABS: Magnesium 1.8 mg/dL (1.6-2.6); Phosphorus 2.3 mg/dL (2.3-4.7)
[2020-02-26] MEDS ORDERED: Nitroglycerin 0.4 MG TAB (25 Tab Bottle) SL PRN ×2 (10:14→16:30)
--- NOTE | 2020-02-26 10:51 | PDOC.BPN ---
- Brief Progress Note Nurse notified me that on tele, it looked as if patient was having ST changes and was tachycardic in the 130s-140s. Patient denies any CP, SOB, CRUZ, changes in vision. Stat EKG and troponins ordered, Nitro SL PRN. Patient appeared to be in no acute distress. Cardiology consulted. EKG showed ST changes in leads II, III, aVF, tachycardia Trop .054, patient's baseline seems to be elevated.
[2020-02-26 10:59] LABS: Troponin I 0.054 ng/mL (< 0.028)
[2020-02-26] MEDS ORDERED: Ondansetron ODT 4 MG TAB PO PRN (16:28)
[2020-02-26] MEDS ORDERED: Calcium Carbonate 500 MG ChewTAB PO PRN (16:28)
[2020-02-26] MEDS ORDERED: Ondansetron PF 4 MG/2 ML Vial IVP PRN (16:28)
[2020-02-26] MEDS ORDERED: Dextrose 5% in Water 1,000 ML IV PRN (16:28)
[2020-02-26] MEDS ORDERED: Dextrose 50% Abboject 50 ML SYRINGE SLOW IVP PRN (16:29)
--- NOTE | 2020-02-26 16:36 | CON ---
DATE OF CONSULTATION: 02/26/2020 REASON FOR CONSULTATION: Abnormal EKG. HISTORY OF PRESENT ILLNESS: Mr. Carolina is a pleasant 54-year-old white gentleman, who comes to the hospital for altered mentation. This was back on the 21 of February. He comes in with a blood sugar of 16, likely cause of altered mental status because of low sugar. His sugar was replaced and he did better. He had some vague abdominal pain that was thought to be related to cholecystitis. However, both Surgery and Gastroenterology have evaluated him and deemed his abdominal issues not to be surgical. Biggest concern is that this was related to known right-sided heart failure and cirrhosis. He has been diuresed with IV Lasix and is actually doing much better. Today this morning, he was being a lot more tachycardic. Monitor showed some EKG changes that were consistent with possible ST-elevation so Cardiology has been consulted for this. He denied any chest pain, tightness, pressure. His only issue was the last night he was getting IV fluids and IV medications and his IV infiltrated and he has a very painful right upper extremity with lot of fluid infiltration on his arm and is exquisitely painful for him, so this is his only complaint at this time. PAST MEDICAL HISTORY: 1. Hep C cirrhosis. 2. Chronic diastolic heart failure. 3. Pulmonary hypertension with cor pulmonale. 4. Systemic arterial blood pressure. 5. Substance abuse. PAST SURGICAL HISTORY: 1. Appendectomy. 2. Foot surgery. 3. Tonsillectomy. 4. Normal coronaries and heart catheterization in 2014. ALLERGIES: NO KNOWN DRUG ALLERGIES. OUTPATIENT MEDICATIONS: 1. Lisinopril 10 mg b.i.d. 2. Lasix 20 mg b.i.d. 3. Aspirin 81 a day. 4. Acetaminophen p.r.n. 5. Tamsulosin. 6. Gabapentin. FAMILY HISTORY: Noncontributory. SOCIAL HISTORY: Former tobacco user of minimal use, quit 30 years ago. No alcohol use, used to have methamphetamine use and cocaine use in the past. Still uses marijuana frequently, he states for pain control. REVIEW OF SYSTEMS: A 12-point review of systems was done and was found to be negative other than stated in the history of present illness. PHYSICAL EXAMINATION: VITAL SIGNS: Temperature 98.7, pulse 120, respiratory rate 23, saturating 88% on room air, goes to 92% on 4 L. blood pressure 120/83. GENERAL: Awake, alert, and oriented x3. Only complaint is arm pain. HEENT: Normocephalic, atraumatic. NECK: Supple. LUNGS: Reduced breath sounds bilaterally. CARDIOVASCULAR: S1 and S2. Tachycardic in the 120. ABDOMEN: Soft with positive bowel sounds. EXTREMITIES: 2+ edema. SKIN: Warm and dry. EXTREMITIES: Chronic venous insufficiency changes on his bilateral lower extremities. Right upper extremity is erythematous and very tender to touch. LABORATORY DATA: Laboratory work was reviewed. Most recently, chemistry with sodium of 134, potassium was 3.4, otherwise unremarkable except for a total bilirubin of 4.4, AST was 64. Troponin was drawn today after the event at 0.054. On admission, it was 0.04, 0.05 and 0.04, so this is consistent with his chronic troponin elevation. UA was reviewed. Toxicology was reviewed. Amphetamines and methamphetamines were detected on admission. EKG was reviewed. No ST-elevation is seen on EKG. ASSESSMENT: 1. EKG changes. He does have some runs of nonsustained SVT. However, EKGs not indicative of an ST-elevation myocardial infarction. He is completely asymptomatic from that standpoint. 2. Severe pulmonary hypertension. 3. Hep C cirrhosis. 4. Volume overload. 5. Right upper extremity pain. Likely this is from the fluid from infiltration of the vein. We will have to keep an eye on this to make sure it does not get infected and does not become cellulitis. PLAN: 1. Agree with IV Lasix at this time at his current dose. 2. He looks a lot better and his only complaint is his arm pain, which is probably the reason why his heart is so tachycardia. Thank you for letting us participate in the care of this patient. We will follow. Job ID: [id number]
[2020-02-26] MEDS: Ibuprofen 600 MG TAB PO PRN (18:27)
[2020-02-26] MEDS ORDERED: Morphine 4 MG/ML VIAL ONE (21:14)
--- NOTE | 2020-02-26 21:25 | RAD ---
EXAM: Single view of the chest HISTORY: Chest pain COMPARISON: 02/22/2020 FINDINGS: Single view of the chest shows an enlarged cardiomediastinal silhouette. There is no eviden ce of consolidation, mass, or pleural effusion. The bones are unremarkable IMPRESSION: Cardiomegaly
[2020-02-26] MEDS ORDERED: Sodium Chloride 0.9% 250 ML IV SCH (21:30)
[2020-02-26] MEDS: Atorvastatin Calcium 40 MG TAB PO SCH (21:39)
[2020-02-26 21:44] LABS: Anion Gap 13 mmol/L (10-20); BUN (Urea Nitrogen) 19 mg/dL (8.4-25.7); Calc. Creatinine Clearance 88 mL/min (70-130); Calcium 7.9 mg/dL (7.8-10.44); Carbon Dioxide 22 mmol/L (22-29); Chloride 99 mmol/L (98-107); Estimated GFR-MDRD 58; Glucose 121 mg/dL (70-105); Potassium 3.3 mmol/L (3.5-5.1); Sodium 131 mmol/L (136-145)
[2020-02-26 22:08] LABS: CKMB 6.5 ng/mL (0-6.6)
--- NOTE | 2020-02-26 23:13 | CT ---
EXAM: CTA of the chest and abdomen HISTORY: Chest pain and back pain; hypotension COMPARISON: None TECHNIQUE: Multiple contiguous axial images were obtained a CTA of the chest and abdomen with contras t per aortic dissection protocol. Sagittal and coronal 3-D MIP reformats were performed. FINDINGS: HEART: Enlarged. Small pericardial effusion. PULMONARY ARTERIES: Normal in caliber without filling defects to suggest pulmonary emboli. MEDIASTINUM: No hilar or mediastinal lymphadenopathy. LUNGS: No focal infiltrates or masses. PLEURAL SPACE: Small bilateral pleural effusions with adjacent atelectasis. CHEST AND ABDOMINAL WALL SOFT TISSUES: Diffuse soft tissue anasarca. LIVER: Unremarkable. Trace ascites adjacent to the liver. GALLBLADDER: Calcified gallstones. KIDNEYS: Unremarkable. SPLEEN: Unremarkable. PANCREAS: Unremarkable. BOWEL: Scattered diverticula in the colon.. RETROPERITONEUM: No lymphadenopathy BONES: Degenerative changes in the spine and shoulders. ASCENDING THORACIC AORTA: Normal caliber without evidence of dissection or aneurysmal dilatation. DESCENDING THORACIC AORTA: Normal caliber without evidence of dissection or aneurysmal dilatation. ABDOMINAL AORTA: Normal caliber without evidence of dissection or aneurysmal dilatation. CELIAC TRUNK: Patent SMA: Patent CARMELINA: Patent RENAL ARTERIES: Bilateral single renal arteries without significant atherosclerotic disease IMPRESSION: 1. No evidence of thoracic or abdominal aortic aneurysm or dissection 2. Cholelithiasis 3. Diverticulosis 4. Bilateral pleural effusions with adjacent atelectasis 5. Pericardial effusion
[2020-02-27 01:44] LABS: CKMB 8.7 ng/mL (0-6.6)
--- NOTE | 2020-02-27 02:58 | PDOC.BPN ---
- Brief Progress Note Paged by nurse regarding new onset chest pain in patient. Went to patient bedside, patient reported acute 10/10 central sharp chest pain radiating to his back with accompanying shortness of breath. SBPs in the 80s per nurse, then went up to 107 systolic with Trendelenburg, HR in the 110s. EKG showed non specific ST changes, per cardiology no significant changes. Heart sounds tachy in the room, lungs CTAB. Ordered Stat CXR, Troponin and BMP. Discussed case with Dr. Damon who recommended STAT CTA Chest and 250 NS IVFs.
[2020-02-27 06:01] LABS: #Basophils 0.1 thou/uL (0.0-0.2); #Eosinphils 1.5 thou/uL (0.0-0.7); #Lymphocytes 1.2 thou/uL (1.20-3.40); #Monocytes 0.8 thou/uL (0.11-0.59); #Neutrophils 4.5 thou/uL (1.40-6.50); %Eosinophils 18.8 % (0.0-10.0); %Lymphocytes 14.7 % (21.0-51.0); %Monocytes 9.9 % (0.0-10.0); %Neutrophils 55.8 % (42.0-75.0); Anisocytosis SLIGHT = 6-15 cells (100X) (0-5/hpf); Hemoglobin 13.2 g/dL (14.0-18.0); MDiff Complete? YES; Mean Corpuscular Hemoglobin 27.3 pg (27.0-31.0); Mean Corpuscular Volume 87.8 fL (78.0-98.0); Mean Platelet Volume 11.9 fL (7.4-10.4); Platelet Count 78 thou/uL (130-400); Platelet Morphology Comment Appears Decreased; RBC Distribution Width 20.1 % (11.5-14.5); Red Blood Cell (RBC) Count 4.86 mill/uL (4.70-6.10); White Blood Cell (WBC) Count 8.1 thou/uL (4.8-10.8)
--- NOTE | 2020-02-27 06:11 | PDOC.FM ---
- Subjective Subjective: Overnight, patient had an episode of 10/10 acute chest pain radiating to his back with accompanying shortness of breath. SBPs in the 80s per nurse, then went up to 107 systolic with Trendelenburg, HR in the 110s. EKG showed non specific ST changes, per cardiology no significant changes. Cardiology was consulted. CTA negative for aortic dissection. Today, patient complaints of SOB and feeling "tight" from being fluid overloaded. Patient also endorses right arm pain. He states his IV infiltrated yesterday early afternoon, but says now his whole arm is swollen and it hurts to move his fingers and arm. Denies CRUZ, CP, abdominal pain, changes in vision. - Objective MAR Reviewed: Yes Vital Signs & Weight: Vital Signs (12 hours) Temp Pulse Resp BP Pulse Ox 02/27/20 05:34 93 L 02/26/20 20:08 93 L 02/26/20 20:00 97.7 F 114 H 15 88/58 L 93 L Weight Weight 96.434 kg I&O: 02/25/20 02/26/20 02/27/20 06:59 06:59 06:59 Intake Total 1470 1248 720 Output Total 2650 3225 1500 Balance -1180 -1977 -780 Result Diagrams: 02/27/20 04:17 02/27/20 04:17 Phys Exam - Physical Examination Constitutional: NAD diffusely edematous HEENT: PERRLA, sclera anicteric Neck: supple, full ROM Respiratory: no wheezing, clear to auscultation bilateral Cardiovascular: no significant murmur regular rhythum, tachycardic Gastrointestinal: non-tender, positive bowel sounds slightly distended abdomen Musculoskeletal: pulses present 3+ pitting edema in BLE. Swelling in right upper extremity down to hand. Neurological: moves all 4 limbs Psychiatric: normal affect, A&O x 3 Deviation from normal: ecchymosis forming on right hand. Erythema where IV infiltrated R arm Dx/Plan - Plan Plan: Chronic diastolic HF - hx of HFpEF - Echo in 09/16 showing EF 50-55%, severe TR, pulmonary HTN - IV Lasix 80mg, will consult Cardiology about recs for diuresing in setting of right heart failure with his low pressures - on home Lasix 10mg BID, patient states he occasionally doubles or triples his dose and takes at one time - BNP elevated on admission, improved on recheck - Cardiology consulted, appreciate the recs Encephalopathy, resolved -Likely 2/2 hypoglycemia vs substance abuse - CT head negative - monitor BG - monitor for withdrawal sx - COVID test neg - TSH, 4.3357 - UDS positive meth Right upper extremity swelling -US to r/o DVT -IV in right arm infiltrated yesterday, redness at site. Swelling down right arm with pain and tenderness Cholelithiasis - CT abdomen with concern, f/u US showing cholelithiasis and cholecystitis - Surgery consulted, appreciate the recs - HIDA scan negative, non operable. Likely falsely positive alvarado's sign due to painfully tender congested liver Possible Liver Cirrhosis - extensive history of drug use, Hx of Hep C - on admission, AST 73, ALT 28, Platelets 86, prolonged PT/PTT, hypoglycemia - prophylaxis against SBP: cefepime, flagyl discontinued -GI consulted, appreciate the recs. Plan to follow up outpatient - Hep C RNA pending Possible Inguinal Hernia -seen by surgery, Roger, appreciate the recs -CT scan didn't show evidence of inguinal hernia -outpatient management Elevated Trops -denies CP - trended down HTN - Home meds Pulmonary HTN - cor pulmonale - Maintain O2 sats, PRN O2 - consider consult to palliative HCV - Monitor LFT -GI consulted, appreciate the recs. - Plan to follow up outpatient. Skin lesion - Likely has BCC on back, possible removal/biopsy Substance Use -IV meth last use 2 weeks ago - UDS + for methamphetamines and amphetamines LAURIE, improving -Cr on admission 1.54 - baseline seems to be >1.0, between 1.1 and 1.3. 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 pending. IVF: KVO DVT ppx: SCD Diet: Low sodium Renal diet 1200mL fluid restriction GI PPX: Protonix gtt discontinued Code: full Disposition/LOS: inpatient, >48 hours Addendum - Attending - Attending Attestation Date/Time: 02/27/20 7081 I personally evaluated the patient and discussed the management with Dr. Chavez. I agree with the History, Examination, Assessment and Plan documented above with any addition or exceptions noted below. The patient is diffusely edematous. Pt has pain, redness and swelling in the right upper extremity. Will get u/s to rule out dvt. Overnight pt had chest pain radiating to the back. CXR showed a wide mediastinum. CTA was negative for dissection but pleural effusions and pericardial effusions noted. CKMB elevated today. Pt's blood pressure is unable to tolerate nitroglycerin. He needs additional diuresis. Will discuss plan with Dr. Damon. Considering dobutamine to help with diuresis if blood pressures don't improve.
[2020-02-27 06:27] LABS: AST (SGOT) 71 U/L (5-34); Bilirubin, Total 3.9 mg/dL (0.2-1.2); Carbon Dioxide 15 mmol/L (22-29); Chloride 102 mmol/L (98-107); Potassium 3.8 mmol/L (3.5-5.1); Protein, Total 6.1 g/dL (6.0-8.3); Sodium 130 mmol/L (136-145)
[2020-02-27 06:45] LABS: Albumin 3.3 g/dL (3.5-5.0); Calc. Creatinine Clearance 90 mL/min (70-130); Estimated GFR-MDRD 60; Globulin 2.8 g/dL (2.4-3.5); Glucose 99 mg/dL (70-105)
[2020-02-27 07:24] LABS: ALT (SGPT) 31 U/L (8-55); Alkaline Phosphatase 82 U/L (40-110); BUN (Urea Nitrogen) 20 mg/dL (8.4-25.7)
[2020-02-27 07:30] LABS: Anion Gap 17 mmol/L (10-20)
[2020-02-27] MEDS ORDERED: Potassium Chloride 20 MEQ TAB PO SCH (08:00)
[2020-02-27] MEDS: Gabapentin 300 MG CAP PO SCH ×3 (08:49→21:31)
[2020-02-27] MEDS: guaiFENesin ER 600 MG TAB PO SCH ×2 (08:50→21:31)
[2020-02-27] MEDS ORDERED: Furosemide 100 MG/10 ML VIAL SLOW IVP SCH (09:00)
[2020-02-27] MEDS ORDERED: Tamsulosin HCl 0.4 MG CAP PO SCH (09:00)
[2020-02-27] MEDS ORDERED: Enoxaparin Sodium 40 MG/0.4 ML SYRINGE SC SCH (10:00)
[2020-02-27] MEDS: Cepastat Lozenges 1 LOZ PO PRN ×2 (10:52→13:06)
[2020-02-27] MEDS: Ibuprofen 600 MG TAB PO PRN (11:05)
--- NOTE | 2020-02-27 11:16 | ULT ---
RIGHT UPPER EXTREMITY VENOUS DOPPLER: Date: 02/27/2020 PROVIDED CLINICAL HISTORY: Right arm pain and swelling. FINDINGS: Murrell scale and color Doppler sonography with spectral analysis was performed of the right internal ju gular, subclavian, axillary, cephalic, basilic, brachial, radial, and ulnar veins. There is luminal echogenicity and noncompressibility involving the right cephalic vein extending from the antecubital fossa into the mid upper and mid lower arm. The remainder of the interrogated venous structures demonstrate an otherwise normal sonographic appea maritza. IMPRESSION: Venous thrombosis involving the right cephalic vein as described. POS: MYRNA
[2020-02-27] MEDS ORDERED: Enoxaparin Sodium 30 MG/0.3 ML SYRINGE SC SCH (14:30)
[2020-02-27] MEDS ORDERED: Milrinone 20 MG in Sodium Chloride 0.9% 100 ML IVPB SCH (14:45)
--- NOTE | 2020-02-27 17:32 | PDOC.CPN ---
- Subjective Date: 02/27/20 Time: 17:30 Interval history: His only complaint is arm pain. No chest pain. Breathing close to baseline. - Review of Systems General: reports: fatigue. denies: fever/chills, weight/appetite/sleep changes , night sweats Respiratory: reports: cough, shortness of breath. denies: congestion, exercise intolerance Cardiovascular: denies: chest pain, palpitation, edema, paroxysmal nocturnal dyspnea, orthopnea Gastrointestinal: denies: nausea, vomiting, diarrhea, constipation, abd pain, GI bleeding Musculoskeletal: denies: pain, tenderness, stiffness, swelling, arthritis/ arthralgias Neurological: denies: numbness, syncope, seizure, weakness - Objective Allergies/Adverse Reactions: Allergies Allergy/AdvReac Type Severity Reaction Status Date / Time No Known Drug Allergies Allergy Verified 09/10/19 20:40 Visit Medications: Current Medications Albuterol/Ipratropium (Duoneb) 3 ml NEB [id number] PRN PRN Reason: SOB &/or Wheezing Last Admin: 02/27/20 07:32 Dose: 3 ml Atorvastatin Calcium (Lipitor) 40 mg PO HS [facility] Last Admin: 02/26/20 21:39 Dose: 40 mg Calcium Carbonate (Tums) 1,000 mg PO Q4H PRN PRN Reason: Heartburn or Indigestion Dextrose/Water (Dextrose 50%) 25 gm SLOW IVP PRN PRN PRN Reason: Hypoglycemia Enoxaparin Sodium (Lovenox) 95 mg SC 0900,2100 [facility] Furosemide (Lasix) 80 mg SLOW IVP DAILY [facility] Last Admin: 02/27/20 08:46 Dose: 80 mg Gabapentin (Neurontin) 300 mg PO TID [facility] Last Admin: 02/27/20 15:21 Dose: 300 mg Glucagon (Glucagon) 1 mg IM PRN PRN PRN Reason: Hypoglycemia Guaifenesin (Mucinex) 600 mg PO Q12HR [facility] Last Admin: 02/27/20 08:50 Dose: 600 mg Dextrose/Water (D5w) 1,000 mls @ 0 mls/hr IV .Q0M PRN PRN Reason: Hypoglycemia Ibuprofen (Motrin) 600 mg PO Q6H PRN PRN Reason: Pain Last Admin: 02/27/20 11:05 Dose: 600 mg Nitroglycerin (Nitrostat) 0.4 mg SL Q5MIN PRN PRN Reason: Chest Pain Ondansetron HCl (Zofran Odt) 4 mg PO Q6H PRN PRN Reason: Nausea/Vomiting Ondansetron HCl (Zofran) 4 mg IVP Q6H PRN PRN Reason: Nausea/Vomiting Pantoprazole Sodium (Protonix) 40 mg PO DAILY [facility] Last Admin: 02/27/20 08:49 Dose: 40 mg Potassium Chloride (K-Dur) 40 meq PO QAM-WM [facility] Last Admin: 02/27/20 08:49 Dose: 40 meq Sodium Chloride (Flush - Normal Saline) 10 ml IVF Q12HR [facility] Last Admin: 02/27/20 08:46 Dose: 10 ml Sodium Chloride (Flush - Normal Saline) 10 ml IVF PRN PRN PRN Reason: Saline Flush Tamsulosin HCl (Flomax) 0.4 mg PO DAILY [facility] Last Admin: 02/27/20 08:49 Dose: 0.4 mg Throat Lozenges (Cepastat Lozenges) 1 mariam PO Q2H PRN PRN Reason: Cough Last Admin: 02/27/20 13:06 Dose: 1 mariam Vital Signs & Weight: Vital Signs Temp Pulse Resp BP BP BP Pulse Ox 02/27/20 16:00 110 H 18 101/75 92 L 02/27/20 10:58 98 F 114 H 18 109/80 94 L 02/27/20 08:50 92 L 02/27/20 07:59 98.2 F 107 H 18 108/82 92 L 02/27/20 07:32 104 H 12 02/27/20 05:34 93 L Weight 210 lb 11.2 oz - Physical Exam General: alert & oriented x3 HEENT: mucus membranes moist Neck: supple neck Cardiac: regular rate and rhythm Lungs: decreased breath sounds Neuro: grossly intact Abdomen: active bowel sounds Extremities: no edema Skin: clear Musculoskeletal: no pain - Labs Result Diagrams: 02/27/20 04:17 02/27/20 04:17 Troponin/CKMB CK-MB (CK-2) 8.7 ng/mL (0-6.6) H* 02/27/20 00:32 Troponin I 0.068 ng/mL (< 0.028) H 02/27/20 00:32 - Telemetry Sinus rhythms and dysrhythmias: sinus rhythm - Assessment/Plan Assessment/Plan: 1. EKG changes. NO STEMI. 2. Severe pulmonary hypertension. 3. Hep C cirrhosis. 4. Right upper extremity venous thrombosis. PLAN: - From volume perspective he seems dry. - Would put back on home dose of diuretic. - Cephalic vein thrombosis is considered a superficial vein and may or may not be treated with full anticoagulation. Given his high risk for pulmonary HTN worsening with any level of thrombosis to lungs and how catastrophic this would be I would err on the side of caution and start full anticoagulation for at least 3-6 months and treat as a DVT.
[2020-02-27 20:44] VITALS: BP 108/74; TEMP 97.6
[2020-02-27] MEDS: Atorvastatin Calcium 40 MG TAB PO SCH (21:31)
--- NOTE | 2020-02-27 23:56 | PDOC.EVN ---
Event Note - Event Note Event Note: Spoke with patient after residents informed me he was considering leaving AM. The patient started on conversation with "I was advised by my prosthetic assistant not to talk to you but I am going to talk to you anyway, just know that I am recording this conversation." Patient states he does not feel he is receiving appropriate care here, feel that our team caused the DVT in his arm, and wants to be transferred to another facility. I informed him his insurance would not approve of a lateral transfer as he does not require a higher level of care at this time. He stated he then wanted to be discharged so he could drive to another facility. I told him that in his current condition, I could not discharge him as he is not medically stable for discharge. He then asked if I was holding him in the hospital against his will. I informed him I was not holding him against his will, I just would not discharge him and if he wanted to leave he would need to sign out against medical advise. He stated his was already on her way to the hospital and that he would be leaving to drive towards [place] and check in to a "private hospital." He acknowledged that he was ill and needed inpatient medical care but that he wanted to receive care elsewhere. I again reiterated that leaving the hospital could result in decompensation of his condition and could lead to further complications but noted that he had already acknowledged this. He said he was leaving AM. I told him I would let his nurse know and she would have the paperwork available as soon as his arrived at the hospital. Will continue to follow up with him while he is in the hospital.
[2020-02-28] MEDS ORDERED: Enoxaparin Sodium 40 MG/0.4 ML SYRINGE SC SCH ×2 (09:00)
[2020-02-28] MEDS ORDERED: Enoxaparin Sodium 100 MG/ML SYRINGE SC SCH (09:00)
--- NOTE | 2020-02-29 07:15 | PQF ---
CLINICAL DOCUMENTATION CLARIFICATION FORM: Dear : Nikko Casiano Date / Time: 02/29/2020 0714 Please exercise your independent, professional judgment in responding to the clarification form. Clinical indicators are provided on the bottom of this form for your review Based on your clinical judgment, can you please clarify the etiology of the abdominal pain? Please check appropriate box(es): [ x] hepatomegaly due to liver cirrhosis [ ] hepatomegaly due to hepatosteatosis [ x ] Right heart failure [ ] Hypoglycemia [ ] Pulmonary hypertension [ ] Other diagnosis [ ] Unable to determine Physician Signature: Date/Time: For continuity of documentation, please document condition throughout progress notes and discharge summary. Thank You. To be completed by CDI/Coding staff for physician review: Present Clinical Indicators - Signs / Symptoms / Labs Results and Location in Medical Record [ X ] BP 131/81, Pulse 109, Resp 20, Temp 97.9 Vital signs 02/21 [ X ] Surgery and Gastroenterology have evaluated him and demed his abdominal issues not to be surgical. Biggest concern is that this was related to known right-sided heart failure and cirrhosis Consult p1 Dr. Bello 02/25 [ X ] reports left lower quadrant abdominal pain persisting intermittently for 2 weeks H&P p1 Dr. Vinson 02/21 [ X ] Sonographic evidence of cholelithiasis and cholecystitis Abdomen Ultrasound p1 Dr. Payan 02/21 [ X ] No evidence of biliary obstruction Hepatobiliary Scan Nuclear Medicine p1 Dr. Springer 02/22 [ X ] suspect his current sonographic positive Paredes sign is a false positive Consult p3 Dr. Duran 02/22 [ X ] Surgery was consulted and felt that his pain was due to hepatomegaly secondary to cor pulmonale PN p1 Dr. Deshpande 02/22 [ X ] AST 69 (02/21); 73 (02/22); 73 (02/23); 65 (02/24); 64 (02/25); 71 (02/26) Laboratory, Chemistry [ X ] ALT 24 (02/21); 28 (02/22); 29 (02/23); 28 (02/24); 31 (02/25); 31 (02/26) Laboratory, Chemistry Present Risk Factors Results and Location in Medical Record [ X ] Hepatitis C H&P Dr. Vinson 02/21 [ X ] Cirrhosis H&P Dr. Vnison 02/21 [ X ] Hepatic Steatosis H&P Dr. Vinson 02/21 [ X ] IV methamphetamine abuse H&P Dr. Vinson 02/21 [ X ] Liver Failure H&P Dr. Vinson 02/21 [ X ] Coagulopathy 2/2 Liver disease H&P Dr. Vinson 02/21 [ X ] Peptic ulcer disease HP 02/21 [ X ] Cholelithiasis with cholecysitis PN 02/22 [ X ] Inguinal Hernia PN 02/26 Present Treatments Results and Location in Medical Record [ X ] Abdomen Ultrasound Ultrasound Dr. Payan 02/21 [ X ] Hepatobiliary Scan Nuclear Medicine Imaging Dr. Springer 02/22 [ X ] Gastroenterology Consult Consult Dr. Pope 02/22 [ X ] IV Lasix 40 mg OCT 01 [ X ] IV Cefepime OCT 01 [ X ] IV Metronidazole OCT 01 CDS/Talent Coordinator Signature: Kelli Hampton Phone #: [phone] Date/Time: 02/29/20713 This is a permanent part of the Medical Record [facility]
== END 2020-02-28 01:05 | disposition left against medical advice (07) | DRG 432 ==
LOC: ERS 14:21 → OBSVTOIN 17:50 → 2NO 17:50 → UNDODISIN 02-26 13:45
PROVIDERS: ADMIT Student in an Organized Health Care Education/Training Program; ATTEND Student in an Organized Health Care Education/Training Program
DX: K74.69 Other cirrhosis of liver (principal); G93.41 Metabolic encephalopathy; I50.33 Acute on chronic diastolic (congestive) heart failure; I13.0 Hypertensive heart and chronic kidney disease with heart failure and stage 1 through stage 4 chronic kidney disease, or unspecified chronic kidney disease; I82.611 Acute embolism and thrombosis of superficial veins of right upper extremity; N17.9 Acute kidney failure, unspecified; D68.4 Acquired coagulation factor deficiency; I47.1 Supraventricular tachycardia; T43.621A Poisoning by amphetamines, accidental (unintentional), initial encounter; Z90.49 Acquired absence of other specified parts of digestive tract; E16.2 Hypoglycemia, unspecified; Z20.828 Contact with and (suspected) exposure to other viral communicable diseases; I27.20 Pulmonary hypertension, unspecified; I50.810 Right heart failure, unspecified; N18.9 Chronic kidney disease, unspecified; I07.1 Rheumatic tricuspid insufficiency; K40.90 Unilateral inguinal hernia, without obstruction or gangrene, not specified as recurrent; F15.10 Other stimulant abuse, uncomplicated; K76.0 Fatty (change of) liver, not elsewhere classified; K27.9 Peptic ulcer, site unspecified, unspecified as acute or chronic, without hemorrhage or perforation; B18.2 Chronic viral hepatitis C; K80.20 Calculus of gallbladder without cholecystitis without obstruction; L98.9 Disorder of the skin and subcutaneous tissue, unspecified; J44.9 Chronic obstructive pulmonary disease, unspecified; Z79.899 Other long term (current) drug therapy
CPT/HCPCS: 36415; 36416; 36600; 70450; 71045; 71275; 72191; 74175; 74177; 76705; 78226; 80053; 80306; 80307; 81003; 82103; 82140; 82533; 82550; 82553; 82570; 82805; 83690; 83735; 83880; 84100; 84145; 84300; 84443; 84484; 85025; 85610; 85652; 85730; 86140; 86705; 86709; 86780; 87340; 87389; 87522; 87635; 93005; 93010; 94640; 96360; 96361; A9537; C9113; G0378; J0692; J1940; J2270; J3475; J3490; J7620; Q9967; U0003